=== PATIENT | female | born 2005 | race Caucasian/White ===

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

== ENCOUNTER 2023-01-28 16:51 | Emergency (ER) | payer OTHER, SELFPAY ==
[2023-01-28 16:53] VITALS: BP 137/80; PULSE 110; RESP 20; TEMP 36.7; O2SAT 100
[2023-01-28] MEDS: ACETAMINOPHEN 500 MG TABLET 1000 MG PO (17:21)
--- NOTE | 2023-01-28 17:24 | ED.URI ---
HPI - URI/Sore Throat General Chief Complaint: Upper Respiratory Infection Stated Complaint: sore throat/ fevers Time Seen by Provider: 01/28/23 16:59 Source: patient Mode of arrival: ambulatory Limitations: no limitations History of Present Illness HPI Narrative: Patient is a 17 y/o female who presents to the ED with her S.O. with report of URI sx's. Patient reports symptoms began last night. She complains of sore throat, cough, rhinorrhea, congestion, heavy breathing, subjective fevers. She has not tried anything for symptoms. Significant other has similar symptoms. Patient is and currently approximately 20 weeks gestation[address] OBGYN is Dr. Garcia. She is feeling baby move as normal. Denies any abdominal pain, vaginal bleeding, nausea, vomiting. Related Data Home Medications Medication Instructions Recorded Confirmed docosahexaenoic acid 200 mg mg PO 01/22/23 01/22/23 capsule ( DHA) doxylamine succinate 25 mg tablet 25 mg PO QHS PRN 01/22/23 01/22/23 (Unisom (doxylamine)) pyridoxine (vitamin B6) 25 mg 25 mg PO DAILY 01/22/23 01/22/23 tablet Allergies Allergy/AdvReac Type Severity Reaction Status Date / Time No Known Allergies Allergy Verified 01/28/23 16:56 Review of Systems Review of Systems: CONSTITUTIONAL: See HPI. ENT: See HPI. CARDIOVASCULAR: Denies chest pain. RESPIRATORY: See HPI. GASTROINTESTINAL: Denies abdominal pain, nausea, vomiting. GENITOURINARY: Denies vaginal bleeding, dysuria or hematuria. All systems reviewed & are unremarkable except as noted in HPI and below PMFSH Past Medical History Medical History ADHD Amenorrhea Anxiety Screening examination for sexually transmitted disease Suppression of menses Family History Family History Grandparent Diabetes mellitus Neoplasm of skin Social History Social History Smoking status: Never smoker Alcohol intake: never Substance use: never Lack of Transportation: No Lack of Food: Never True Current Housing: I Have Housing Concerned About Future Housing: No Difficulty Paying Gas/Electric Bills: No Difficulty Paying for Meds: No Currently Unemployed: No Education: High School Diploma/GED Difficulty w/ Childcare or Family Care: No Living arrangements: with family Occupation/Education: occupation Additional occupation/education comments: [employer] Gender identity (if verbalized by the patient): Female Sexual Orientation (if Verbalized by the Patient): Straight or Heterosexual Exam Narrative: GENERAL: Well appearing, thin, non-toxic, in no acute distress. HEAD: Normocephalic, atraumatic. ENT: Mild posterior pharynx erythema. No tonsillar hypertrophy or exudate. Uvula midline. No stridor. NECK: Supple. No adenopathy, no masses. RESPIRATORY: Airway patent, respirations nonlabored. Clear to auscultation bilaterally, no rales, rhonchi, wheezing. No focal lung sounds. CARDIOVASCULAR: Regular rate and rhythm without murmurs, rubs, or gallops. Radial pulses 2+ and equal bilaterally. ABDOMINAL: Soft, nontender, nondistended, no hepatosplenomegaly. Normoactive BS. MUSCULOSKELETAL: Moves all extremities. No gross deformities. SKIN: Warm, dry, normal color. No rashes. NEURO: A&O X3. Speech clear. Cranial nerves II-XII grossly intact. Steady gait. No ataxic movements. PSYCHIATRIC: Flat affect. Normal interaction. Course Vital Signs Vital signs: Vital Signs Temperature 98.1 F 01/28/23 16:53 Pulse Rate 110 H 01/28/23 16:53 Respiratory Rate 20 01/28/23 16:53 Blood Pressure 137/80 01/28/23 16:53 Pulse Oximetry 100 01/28/23 16:53 Oxygen Delivery Room Air 01/28/23 16:53 Temperature 98.1 F 01/28/23 16:53 Pulse Rate 110 H 01/28/23 16:53 Respiratory Rate 20 01/28/23 16:53
[2023-01-28 17:57] LABS: Strep Group A RT-PCR NOT DETECTED (Negative)
[2023-01-28 18:03] LABS: Influenza A QL RT-PCR Negative (Negative); Influenza B QL RT-PCR Negative (Negative); SARS-CoV-2 RNA PCR Negative (Negative)
== END 2023-01-28 18:38 | disposition home or self-care (01) ==
PROVIDERS: Emergency Provider Physician Assistant
DX: O99.512 Diseases of the respiratory system complicating pregnancy, second trimester (principal); J06.9 Acute upper respiratory infection, unspecified; Z20.822 Contact with and (suspected) exposure to COVID-19; Z3A.20 20 weeks gestation of pregnancy
CPT/HCPCS: 87636; 87651; 99283; A9270

== ENCOUNTER 2023-03-01 08:21 | Emergency (ER) | payer OTHER, SELFPAY ==
[2023-03-01 08:39] VITALS: BP 115/73; PULSE 109; RESP 16; TEMP 36.3; O2SAT 100
--- NOTE | 2023-03-01 09:12 | ED.EPISTAXIS ---
HPI - Epistaxis General Chief complaint: Epistaxis Stated complaint: bloody nose Time Seen by Provider: 03/01/23 08:53 History of Present Illness HPI Narrative: 17-year-old female that has currently presenting to the emergency department for evaluation epistaxis. Patient states this morning she had an episode of nose bleeding that did resolve after the nasal clamp. Patient is not on any blood thinners. Patient states she does suspect that her house was very dry last night. Patient denies vaginal bleeding, vaginal discharge or uterine cramping. Related Data Allergies Allergy/AdvReac Type Severity Reaction Status Date / Time No Known Allergies Allergy Verified 02/19/23 15:26 Review of Systems Review of Systems: All systems reviewed & are unremarkable except as noted in HPI and below PMFSH Past Medical History Medical History ADHD Amenorrhea Anxiety Screening examination for sexually transmitted disease Suppression of menses Family History Family History Grandparent Diabetes mellitus Neoplasm of skin Social History Social History Smoking status: Never smoker Alcohol intake: never Substance use: never Lack of Transportation: No Lack of Food: Never True Current Housing: I Have Housing Concerned About Future Housing: No Difficulty Paying Gas/Electric Bills: No Difficulty Paying for Meds: No Currently Unemployed: No Education: High School Diploma/GED Difficulty w/ Childcare or Family Care: No Living arrangements: with family Occupation/Education: occupation Additional occupation/education comments: [employer] Gender identity (if verbalized by the patient): Female Sexual Orientation (if Verbalized by the Patient): Straight or Heterosexual Exam Narrative: APPEARANCE: Well appearing, no pain, no distress, well-nourished. HEAD: normocephalic, atraumatic. EYES: PERRLA/EOMI, conjunctivae clear. NOSE: Normal no drainage EARS:TMS clear with good light reflex. THROAT: Pharynx clear, no exudate. NECK: Supple. No adenopathy, no masses. RESPIRATORY: Airway patent, respirations nonlabored. Clear to auscultation bilaterally, no rales, rhonchi, wheezing. CARDIOVASCULAR: Regular rate and rhythm without murmurs rubs or gallops. ABDOMINAL: Soft, nontender, nondistended, normal bowel sounds MUSCULOSKELETAL: Moves all extremities. Strength/ROM intact, No edema, No calf tenderness. NEURO: Alert. Cranial nerves II through XII intact. Good gait. Good coordination SKIN: Warm, dry. Normal Color Course Course Emergency Course: 17-year-old female presenting to the ED for evaluation of epistaxis. Bleeding was resolved at home using a nasal clamp. Upon arrival to the emergency department patient has no active bleeding. Patient has a stable hemoglobin and having normal PT and PTT. Patient was updated results of workup patient was encouraged of close follow-up with primary care physician. Patient was also educated ways to prevent nosebleeds at home. All questions concerns were addressed patient was well-appearing at time discharge. Vital Signs Vital signs: Vital Signs Temperature 97.4 F L 03/01/23 08:39 Pulse Rate 109 H 03/01/23 08:39 Respiratory Rate 16 03/01/23 08:39 Blood Pressure 115/73 03/01/23 08:39 Pulse Oximetry 100 03/01/23 08:39 Oxygen Delivery Room Air 03/01/23 08:39 Temperature 97.4 F L 03/01/23 08:39 Pulse Rate 109 H 03/01/23 08:39 Respiratory Rate 16 03/01/23 08:39 Blood Pressure 115/73 03/01/23 08:39 Pulse Oximetry 100 03/01/23 08:39 Oxygen Delivery Room Air 03/01/23 08:39 MDM - Epistaxis Lab Data 03/01/23 09:06 03/01/23 09:06 Labs: Lab Results 03/01/23 Range/Units 09:06 WBC 17.9 H (4.5-10.0) K/mm3 RBC 3.79 L
[2023-03-01 09:17] LABS: Basophils Absolute Auto 0.1 K/mm3 (0.0-0.1); Basophils Percent Auto 0.4 % (0.2-1.2); Eosinophils Absolute Auto 0.2 K/mm3 (0-0.3); Eosinophils Percent Auto 1.3 % (0-4.4); Hematocrit 32.5 % (37.0-47.0); Hemoglobin 9.9 g/dL (12.0-15.0); Immature Granulocyte Absolute 0.23 K/mm3 (0.00-0.031); Immature Granulocyte Percent A 1.3 % (0-0.5); Lymphocytes Percent Auto 22.9 % (18.3-44.2); Mean Corpuscular HGB Conc 30.5 g/dl (32-36); Mean Corpuscular Hemoglobin 26.1 pg (26-34); Mean Corpuscular Volume 85.8 fl (80-100); Mean Platelet Volume 9.2 fl (7.4-10.4); Monocytes Absolute Auto 1.7 K/mm3 (0.1-0.6); Monocytes Percent Auto 9.6 % (2.6-8.5); Neutrophils Absolute Auto 11.6 K/mm3 (1.3-6.7); Neutrophils Percent Auto 64.5 % (45.5-73.1); Platelet Count Result 369 k/mm3 (150-375); Red Blood Count 3.79 M/mm3 (4.2-5.4); Red Cell Distribution Width 14.1 % (11.5-14.5); White Blood Count 17.9 K/mm3 (4.5-10.0)
[2023-03-01 09:27] LABS: Alanine Aminotransferase 11 U/L (6-35); Albumin Level 3.7 g/dL (3.7-5.6); Alkaline Phosphatase 78 U/L (45-116); Anion Gap 6 mmol/L (8-16); Aspartate Amino Transferase 18 U/L (14-36); Bilirubin,Total 0.2 mg/dL (0.2-1.3); Blood Urea Nitrogen 8 mg/dL (8-21); Carbon Dioxide 24 mmol/L (22-30); Chloride 106 mmol/L (98-107); Estimated CRCL calculation 152 ml/min; Estimated Glomerular Filt Rate > 60; Glucose 81 mg/dL (65-110); Potassium 3.6 mmol/L (3.4-5.0); Sodium 136 mmol/L (134-143)
[2023-03-01 09:28] LABS: INR 0.9
== END 2023-03-01 09:55 | disposition home or self-care (01) ==
PROVIDERS: Emergency Provider Emergency Medicine
DX: O99.891 Other specified diseases and conditions complicating pregnancy (principal); R04.0 Epistaxis; Z3A.00 Weeks of gestation of pregnancy not specified
CPT/HCPCS: 36415; 80053; 85025; 85610; 85730; 99283

== ENCOUNTER 2023-04-15 01:51 | Observation (INO) | payer OTHER, SELFPAY ==
[2023-04-15 02:30] VITALS: BP 107/71; PULSE 100
[2023-04-15 02:41] VITALS: BMI 25.9
[2023-04-15 02:41] LABS: Appearance Urine Clear (Clear); Bilirubin Urine Negative (Negative); Blood Urine Negative (Negative); Color Urine Yellow (Yellow); Glucose Urine UA Negative (Negative); Ketones Urine Negative (Negative); Leukocyte Esterase Ur Negative LEU/UL (Negative); Nitrate Urine Negative (Negative); Protein Urine Negative (Negative); Specific Grav Ur 1.022 (1.001-1.035); Urobilinogen Urine 0.2 mg/dL (<2.0); pH Urine 5.5 (5.0-9.0)
--- NOTE | 2023-04-15 02:42 | ADMGEN ---
This patient, Della Davis, was admitted to OB Post 116-00. Patient/family oriented to hospital policies and general routines including ID bracelet, bed and alarms, visiting hours, pain management, procedures, bathroom and other care routines, personal items, smoking policy, room service/diet, and visiting hours. Information on how to activate the Rapid Response Team has been discussed. Patient/Family are encouraged to report perceived risks to care and to ask questions if they do not understand what they are told or what they should do.
[2023-04-15 02:45] VITALS: BP 115/74; PULSE 100
[2023-04-15 03:00] VITALS: BP 117/70; PULSE 98
[2023-04-15 03:15] VITALS: BP 120/68; PULSE 106
[2023-04-15 03:17] LABS: Add Urine Microscopic? NO
[2023-04-15 03:30] VITALS: BP 118/67; PULSE 97
[2023-04-15 03:45] VITALS: BP 117/77; PULSE 102
--- NOTE | 2023-04-15 09:06 | P.PNOB_ITS ---
OB - Triage/Final Diagnosis Visit Information Comments/Additional reasons for admission: I have assessed the risk for this patient, Della Davis, and determined that she would benefit from observation care. Evaluation Laboratory results: Laboratory Tests 04/15/23 02:16 Urine Color Yellow Urine Appearance Clear Urine pH 5.5 Ur Specific [place] 1.022 Urine Protein Negative Urine Glucose (UA) Negative Urine Ketones Negative Ur Blood (Man) Negative Urine Nitrate Negative Urine Bilirubin Negative Urine Urobilinogen 0.2 Leukocyte Esterase Rfl Negative Vital signs: Vital Signs - 24 hr 04/15/23 02:30 04/15/23 02:45 04/15/23 03:00 Pulse Rate 100 100 98 Blood Pressure 107/71 115/74 117/70 04/15/23 03:15 04/15/23 03:30 04/15/23 03:45 Pulse Rate 106 H 97 102 H Blood Pressure 120/68 118/67 117/77 Final Diagnosis (1) Abdominal pain affecting : Code(s): O26.899 - Other specified related conditions, unspecified trimester; R10.9 - Unspecified abdominal pain Status: Acute
== END 2023-04-15 03:57 | disposition home or self-care (01) ==
PROVIDERS: Admitting Provider Obstetrics & Gynecology; Visit Provider Obstetrics & Gynecology
DX: O26.893 Other specified pregnancy related conditions, third trimester (principal); R10.9 Unspecified abdominal pain; Z3A.30 30 weeks gestation of pregnancy
CPT/HCPCS: 81003; G0378; G0379

== ENCOUNTER 2023-04-17 08:12 | Outpatient (CLI) | payer OTHER, SELFPAY ==
[2023-04-17 09:34] LABS: Hematocrit 32.5 % (37.0-47.0); Hemoglobin 9.6 g/dL (12.0-15.0); Mean Corpuscular HGB Conc 29.5 g/dl (32-36); Mean Corpuscular Hemoglobin 23.2 pg (26-34); Mean Corpuscular Volume 78.7 fl (80-100); Mean Platelet Volume 9.5 fl (7.4-10.4); Platelet Count Result 417 k/mm3 (150-375); Red Blood Count 4.13 M/mm3 (4.2-5.4); Red Cell Distribution Width 15.4 % (11.5-14.5); White Blood Count 19.4 K/mm3 (4.5-10.0)
[2023-04-17 09:48] LABS: Glucose 1 Hour PP 50gm Dose 85 mg/dL
[2023-04-17 10:28] LABS: HIV 1/2 Ab P24 Ag Result Negative (Negative)
== END 2023-04-17 08:13 | disposition home or self-care (01) ==
LOC: ANHLAB 08:14
PROVIDERS: Visit Provider Student in an Organized Health Care Education/Training Program
DX: Z34.90 Encounter for supervision of normal pregnancy, unspecified, unspecified trimester (principal); Z3A.00 Weeks of gestation of pregnancy not specified
CPT/HCPCS: 36415; 82947; 85027; 86703; G0432

== ENCOUNTER 2023-05-29 10:12 | Inpatient (IN) | payer OTHER, SELFPAY ==
[2023-05-29] VITALS (137 sets, daily range): BP systolic 77–136; BP diastolic 18–114; PULSE 65–150; RESP 17; TEMP 36.4–37.3; O2SAT 78–100; BMI 29.2
[2023-05-29 10:58] LABS: Basophils Absolute Auto 0.1 K/mm3 (0.0-0.1); Basophils Percent Auto 0.4 % (0.2-1.2); Eosinophils Absolute Auto 0.3 K/mm3 (0-0.3); Eosinophils Percent Auto 1.2 % (0-4.4); Hematocrit 32.5 % (37.0-47.0); Hemoglobin 9.5 g/dL (12.0-15.0); Immature Granulocyte Absolute 0.42 K/mm3 (0.00-0.031); Immature Granulocyte Percent A 1.8 % (0-0.5); Lymphocytes Absolute Auto 3.58 K/mm3 (0.9-3.2); Lymphocytes Percent Auto 15.1 % (18.3-44.2); Mean Corpuscular HGB Conc 29.2 g/dl (32-36); Mean Corpuscular Hemoglobin 21.8 pg (26-34); Mean Corpuscular Volume 74.7 fl (80-100); Mean Platelet Volume 9.9 fl (7.4-10.4); Monocytes Absolute Auto 2.3 K/mm3 (0.1-0.6); Monocytes Percent Auto 9.5 % (2.6-8.5); Neutrophils Absolute Auto 17.1 K/mm3 (1.3-6.7); Platelet Count Result 405 k/mm3 (150-375); Red Blood Count 4.35 M/mm3 (4.2-5.4); Red Cell Distribution Width 18.3 % (11.5-14.5); White Blood Count 23.7 K/mm3 (4.5-10.0)
[2023-05-29] MEDS: LACTATED RINGERS 1,000 ML 125 ML IV CONT ×3 (11:10→18:31)
[2023-05-29] MEDS: AMPICILLIN 2 GM/NS 100 ML 2 GM/100 ML BAG IVPB (11:10)
[2023-05-29 11:14] LABS: Anisocytosis 1+ (NORMAL); Hypochromasia 1+ (NORMAL); Schistocytes None Seen (NORMAL)
--- NOTE | 2023-05-29 11:15 | LDADM ---
This patient, Della Davis, was admitted to Labor/Delivery/Recovery 106 on 05/29/23 at 10:12. Plans for labor, pain management and were discussed with patient. Patient/family oriented to hospital policies and general routines including ID bracelet, bed and alarms, visiting hours, pain management, procedures, bathroom and other care routines, personal items, smoking policy, room service/diet and guest tray routines, infant security routines, and visiting hours. Patient/Family are encouraged to report perceived risks to care and to ask questions if they do not understand what they are told or what they should do. See OBIX for further documentation.
--- NOTE | 2023-05-29 12:48 | WPDHPUPDATE1 ---
History and Physical Update Update Date/Time: 05/29/23 12:48 17 yo G1 at 36w4d who presents with PPROM. Pt states she has been leaking fluid/discharge for the past 2-5 days. She denies any regular contractions. She denies any fevers, chills, nausea, vomiting. She reports good movement. Her is complicated by anemia on iron and THC use. History and Physical has been reviewed, including an updated exam of the patient. There are NO changes in the patient's condition. Risks, benefits, and alternatives have been discussed and questions answered. Patient agrees to proceed with procedure. A/P: admit to L&D routine admission orders RH+ GBS unknown PPROM, will start ampicillin cvx 2/90/0 Will augment as indicated continuous EFM
[2023-05-29 13:00] LABS: Barbiturate Screen Urine Negative (Negative); Benzodiazepines Screen Urine Negative (Negative)
[2023-05-29 13:06] LABS: Amphetamine Screen Urine Negative (Negative); Cannabinoid Screen Urine Positive (Negative); Cocaine Screen Urine Negative (Negative); Methadone Screen Urine Negative (Negative); Opiate Screen Urine Negative (Negative); Phencyclidine Screen Urine Negative (Negative)
--- NOTE | 2023-05-29 13:54 | WPDANESEPP ---
Anes - Eval Pre Procedure Procedure: labor epidural Date/Time: 05/29/23 13:54 Surgeon: aditi Preop Diagnosis: Pain during labor Pre Op Diagnosis: Leaking Patient Data Age: 17 Gender: F Height: 1.68 m Weight: 82 kg Last Vital Signs Temp 36.9 C 05/29/23 11:00 Pulse 119 H 05/29/23 12:01 BP 113/90 05/29/23 12:01 O2 Del Method Room Air 05/29/23 11:12 Allergies Allergy/AdvReac Type Severity Reaction Status Date / Time No Known Allergies Allergy Verified 05/29/23 09:34 Home Medications Medication Instructions Recorded Confirmed Type albuterol sulfate 90 mcg/actuation 1 puff inhalation Q4H PRN 04/15/23 05/29/23 Rx aerosol inhaler shortness of breath or wheezing #6.7 grams ferrous sulfate 325 mg (65 mg 325 mg PO DAILY #30 tabs 04/19/23 05/29/23 Rx iron) tablet (Feosol) vitamin B6-vitamin E-magnesium 1 tablet PO DAILY 05/29/23 05/29/23 History tablet Laboratory Tests 05/29/23 05/29/23 10:49 12:12 WBC 23.7 H K/mm3 (4.5-10.0) RBC 4.35 M/mm3 (4.2-5.4) Hgb 9.5 L g/dL (12.0-15.0) Hct 32.5 L % (37.0-47.0) MCV 74.7 L fl (80-100) MCH 21.8 L pg (26-34) MCHC 29.2 L g/dl (32-36) RDW 18.3 H % (11.5-14.5) Plt Count 405 H k/mm3 (150-375) MPV 9.9 fl (7.4-10.4) Immature Gran % (Auto) 1.8 H % (0-0.5) Neut % (Auto) 72.0 % (45.5-73.1) Lymph % (Auto) 15.1 L % (18.3-44.2) [place] % (Auto) 9.5 H % (2.6-8.5) Eos % (Auto) 1.2 % (0-4.4) Baso % (Auto) 0.4 % (0.2-1.2) Lymph # (Auto) 3.58 H K/mm3 (0.9-3.2) [place] # (Auto) 2.3 H K/mm3 (0.1-0.6) Eos # (Auto) 0.3 K/mm3 (0-0.3) Baso # (Auto) 0.1 K/mm3 (0.0-0.1) Abs Immat Gran (auto) 0.42 H K/mm3 (0.00-0.031) Absolute Neuts (auto) 17.1 H K/mm3 (1.3-6.7) Absolute Nucleated RBC 0.000 K/mm3 (0.0-0.012) Nucleated RBC % 0.0 % (0.0-0.2) Platelet Estimate Slightly increased (Adequate) Hypochromasia 1+ (NORMAL) Anisocytosis 1+ (NORMAL) Schistocytes None seen (NORMAL) Urine Opiates Screen Negative (Negative) Urine Methadone Screen Negative (Negative) Ur Barbiturates Screen Negative (Negative) Ur Phencyclidine Scrn Negative (Negative) Ur Amphetamine Screen Negative (Negative) U Benzodiazepines Scrn Negative (Negative) Urine Cocaine Screen Negative (Negative) U Cannabinoids Screen Positive A (Negative) RPR Pending Blood Type A Positive Antibody Screen Negative Patient hx anesthesia problems: none Family hx anesthesia problems: none Results Review: All pre-operative results and documents have been reviewed as part of the pre-operative evaluation. [facility] Past Medical History Medical History ADHD Amenorrhea Anxiety Screening examination for sexually transmitted disease Suppression of menses Family History Family History Grandparent Diabetes mellitus Neoplasm of skin Social History Social History Smoking status: Former smoker Tobacco type: e-cigarettes/vaping Smoking end date: 03/19/23 Alcohol intake: never Substance use: former Do You Feel Safe in your Home?: Yes Lack of Transportation: No Lack of Food: Never True Current Housing: I Have Housing Concerned About Future Housing: No Difficulty Paying Gas/Electric Bills: No Difficulty Paying for Meds: No Currently Unemployed: YES Education: High School Diploma/GED Difficulty w/ Childcare or Family Care: No Living arrangements: with family Occupation/Education: occupation Additional occupation/education comments: [employer] Gender identity (i
[2023-05-29] MEDS: AMPICILLIN 1 GM/NS 50 ML 1 GM/50 ML BAG IVPB ×2 (15:09→19:22)
[2023-05-29] MEDS: OXYTOCIN 30 UNITS/NS 500 ML 30 UNITS/500 ML BAG 6 UNITS IV CONT (15:10)
[2023-05-29] MEDS: ONDANSETRON INJ 4 MG/2 ML VIAL IV PUSH (15:18)
--- NOTE | 2023-05-29 20:20 | WPDHPUPDATE1 ---
History and Physical Update Update Date/Time: 05/29/23 20:20 History and Physical has been reviewed, including an updated exam of the patient. There are NO changes in the patient's condition. Risks, benefits, and alternatives have been discussed and questions answered. Patient agrees to proceed with procedure.
--- NOTE | 2023-05-29 20:20 | WPDOBADMIT ---
Obstetrics - Admit Note Admission Note: record reviewed. No pertinent additions to the history and/or any subsequent changes in the physical findings that are not consistent with the expected course of the were found. Additions to the history and/or subsequent changes in the physical findings follow. None.
--- NOTE | 2023-05-29 20:20 | PM.OBPRVD ---
OB - Vaginal Delivery Note Procedure Delivery date: 05/29/23 Events: Premature Rupture of Membranes and Other ( prolonged rupture membranes /) Induction method: Per Pitocin Protocol Delivery monitor: External FHT and External Uterine Route of delivery: Episiotomy description: None Laceration Description: Perineal - 1st Degree Delivery repair: chromic Specimen: Yes Quantitative Blood Loss (ml): 350 Anesthesia type: Epidural Disposition: PACU Complications: No immediate complications Narrative: patient prepped and draped in usual manner for this procedure. Maternal expulsive efforts readily delivered vertex over intact perineum. Nuchal cord was noted and reduced. Rest of baby was delivered difficulty cord clamped baby was passed on maternal abdomen. Placenta delivered without issue in total, no significant bleeding was encountered. Uterus was well contracted. first-degree laceration was noted and approximated using 2-0 chromic in a running interlocking manner with good repair. At this point the procedure was considered terminated with immediate postoperative condition of mother and baby both good. [place] Baby Weeks of gestation at delivery: 36 Infant gender: Male presentation: vertex position: Right Occiput Anterior Placenta delivery description: Spontaneous Cord Vessel Description: 3 Vessels, Nuchal Cord and Reduced AMG Delivery Billing Delivery Delivery: Delivery Charge
[2023-05-29] MEDS: OXYTOCIN 30 UNITS/NS 500 ML 30 UNITS/500 ML BAG 125 UNITS IV CONT (20:34)
[2023-05-29] MEDS: LORATADINE 10 MG TABLET (21:30)
[2023-05-29] MEDS: BENZOCAINE 20% AER SPR (*SP) 56 GM CAN 1 SPRAY TOPICAL (23:23)
[2023-05-29] MEDS: WITCH HAZEL 40 PADS 1 PAD TOPICAL (23:23)
--- NOTE | 2023-05-29 23:50 | PC.NURSE ---
Patient transferred to post room #290 via (W/C ). Support person present. Oriented to unit, room, information board, rooming in, admission packet and security measures. Patient verbalizes understanding.
[2023-05-30 00:12] VITALS: BP 114/76; PULSE 95; RESP 17; RESP 18; TEMP 36.4; O2SAT 99
[2023-05-30] MEDS: IBUPROFEN 600 MG TABLET PO ×3 (01:29→17:58)
[2023-05-30] MEDS: HYDROcodone/acetaminophen (*CRX) 5-325 MG TABLET 1 TAB PO ×4 (01:30→17:58)
[2023-05-30 03:50] VITALS: BP 121/69; PULSE 102; RESP 18; TEMP 36.4; O2SAT 97
[2023-05-30 04:51] LABS: Basophils Absolute Auto 0.1 K/mm3 (0.0-0.1); Basophils Percent Auto 0.4 % (0.2-1.2); Eosinophils Absolute Auto 0.2 K/mm3 (0-0.3); Eosinophils Percent Auto 0.7 % (0-4.4); Hematocrit 30.1 % (37.0-47.0); Hemoglobin 8.7 g/dL (12.0-15.0); Immature Granulocyte Absolute 0.42 K/mm3 (0.00-0.031); Immature Granulocyte Percent A 1.4 % (0-0.5); Lymphocytes Absolute Auto 4.42 K/mm3 (0.9-3.2); Lymphocytes Percent Auto 14.9 % (18.3-44.2); Mean Corpuscular HGB Conc 28.9 g/dl (32-36); Mean Corpuscular Hemoglobin 21.6 pg (26-34); Mean Corpuscular Volume 74.9 fl (80-100); Mean Platelet Volume 9.9 fl (7.4-10.4); Monocytes Absolute Auto 2.9 K/mm3 (0.1-0.6); Monocytes Percent Auto 9.7 % (2.6-8.5); Neutrophils Absolute Auto 21.7 K/mm3 (1.3-6.7); Neutrophils Percent Auto 72.9 % (45.5-73.1); Platelet Count Result 375 k/mm3 (150-375); Red Blood Count 4.02 M/mm3 (4.2-5.4); Red Cell Distribution Width 18.4 % (11.5-14.5); White Blood Count 29.7 K/mm3 (4.5-10.0)
[2023-05-30 05:30] LABS: Anisocytosis 1+; Hypochromasia 1+; Microcytosis 1+ (NORMAL); Platelet Estimate Adequate (Adequate)
[2023-05-30 05:31] LABS: Schistocytes None Seen; Target Cells 1+
[2023-05-30] MEDS: WITCH HAZEL 40 PADS 1 PAD TOPICAL (07:25)
[2023-05-30] MEDS: BENZOCAINE 20% AER SPR (*SP) 56 GM CAN 1 SPRAY TOPICAL (07:25)
[2023-05-30] MEDS: POLYSACCHARIDE IRON COMPLEX 150 MG CAPSULE PO ×2 (07:25→17:58)
[2023-05-30] MEDS: DOCUSATE SODIUM 100 MG CAPSULE PO ×2 (07:25→17:58)
[2023-05-30] MEDS: MULTIVIT/MIN/PREN/FOL AC/IRON TABLET 1 TAB PO (07:25)
[2023-05-30 08:10] VITALS: BP 109/65; PULSE 79; RESP 18; TEMP 36.5; O2SAT 99
--- NOTE | 2023-05-30 08:29 | P.PNOB_ITS ---
OB - PN: Subj Subjective Date/time seen: 05/30/23 08:29 Patient comments: no complaints, pain well controlled and tolerating diet [place] feeding status: exclusively breast feeding Narrative: patient doing well this AM. No complaints. Pain is well controlled. She reports minimal bleeding. She is ambulating and voiding without difficulty. She is tolerating PO. She denies N/V, fever, chills. OB - PN: Obj Data Labs 05/30/23 04:29 Labs: Laboratory Results - last 24 hr 05/29/23 05/29/23 05/30/23 10:49 12:12 04:29 WBC 23.7 H 29.7 H RBC 4.35 4.02 L Hgb 9.5 L 8.7 L Hct 32.5 L 30.1 L MCV 74.7 L 74.9 L MCH 21.8 L 21.6 L MCHC 29.2 L 28.9 L RDW 18.3 H 18.4 H Plt Count 405 H 375 MPV 9.9 9.9 Immature Gran % (Auto) 1.8 H 1.4 H Neut % (Auto) 72.0 72.9 Lymph % (Auto) 15.1 L 14.9 L [place] % (Auto) 9.5 H 9.7 H Eos % (Auto) 1.2 0.7 Baso % (Auto) 0.4 0.4 Lymph # (Auto) 3.58 H 4.42 H [place] # (Auto) 2.3 H 2.9 H Eos # (Auto) 0.3 0.2 Baso # (Auto) 0.1 0.1 Abs Immat Gran (auto) 0.42 H 0.42 H Absolute Neuts (auto) 17.1 H 21.7 H Absolute Nucleated RBC 0.000 0.000 Nucleated RBC % 0.0 0.0 Platelet Estimate Slightly increased Adequate Hypochromasia 1+ 1+ Anisocytosis 1+ 1+ Microcytosis 1+ Target Cells 1+ Schistocytes None seen None seen Urine Opiates Screen Negative Urine Methadone Screen Negative Ur Barbiturates Screen Negative Ur Phencyclidine Scrn Negative Ur Amphetamine Screen Negative U Benzodiazepines Scrn Negative Urine Cocaine Screen Negative U Cannabinoids Screen Positive A Blood Type A Positive Antibody Screen Negative OB - PN A/P Plan day: 1 Plan: routine care Comments: patient doing well H/H 8.7/30, patient asymptomatic. Recommended iron supplementation Afebrile, vital signs stable continue routine care Time Spent With Patient Time: Total time spent is greater than 50% in coordination of care (as documented) at patient's floor/unit and/or counseling patient: Time with patient: less than 15 minutes Review of Systems Review of Systems: All systems reviewed & are unremarkable except as noted in HPI and below Exam Const: General: comfortable and no acute distress Resp: Effort & Inspection: normal respiratory effort Cardio: Rate: regular rate GI: GI Palp: Yes Soft to palpation and No Tenderness to palpation present (GI) Auscultation: normal bowel sounds Other: fundus firm and below umbilicus. Psych: Affect: normal affect
--- NOTE | 2023-05-30 08:57 | WPDANLDPN2 ---
Anes-Prog Note L&D Date/Time: 05/30/23 08:57 Comfortable throughout: labor and delivery Neuraxial method: epidural Epidural/Spinal procedure site: clean & non-tender Neuro status: Neuro function grossly intact. Cardiovascular status: normal Respiratory status: normal Airway patency: baseline Mental status: baseline Post-Op hydration status: normal Vital Signs: Last Vital Signs Temp 36.4 C L 05/30/23 03:50 Pulse 102 H 05/30/23 03:50 Resp 18 05/30/23 03:50 BP 121/69 05/30/23 03:50 Pulse Ox 97 05/30/23 03:50 O2 Del Method Room Air 05/30/23 00:12 Pain score (VAS): 0/10 I/O: Intake & Output 05/29/23 05/30/23 05/30/23 23:59 07:59 15:59 Intake Total 658.3 Balance 658.3 Post-procedural complaints: pruritis moderate, treatment effective Patient feedback: Patient satisfied with anesthetic care.
--- NOTE | 2023-05-30 10:47 | PCCCNOTE ---
Care Coordination. Patient referred to CC for teen and positive marijuana UDS on admission. Baby not tested. Met with pt., FOB, and pt.'s mother at bedside. Pt. plans to return home with her mother. She reports having very good support and all necessary baby care items. She plans to reach out to [facility] and I provided her resources with their information as well. Pt. and her mother report she used marijuana 3-4 times during and denies this being a concern or need for substance use resources. Spoke with Jose at [facility] hotline and he took pt.'s situation as information only Intake ID#[id number]. Pt. denies further CC needs.
[2023-05-30 11:41] LABS: Rapid Plasma Reagin Non-Reactive (NonReactive)
[2023-05-30 13:09] VITALS: BP 104/48; PULSE 90; RESP 16; TEMP 36.5; O2SAT 99
[2023-05-30 20:00] VITALS: BP 116/75; PULSE 84; RESP 12; TEMP 36.6; O2SAT 98
[2023-05-31] MEDS: IBUPROFEN 600 MG TABLET PO ×3 (01:30→14:37)
[2023-05-31] MEDS: HYDROcodone/acetaminophen (*CRX) 5-325 MG TABLET 1 TAB PO (01:32)
[2023-05-31 05:55] LABS: Basophils Absolute Auto 0.1 K/mm3 (0.0-0.1); Basophils Percent Auto 0.6 % (0.2-1.2); Eosinophils Absolute Auto 0.3 K/mm3 (0-0.3); Eosinophils Percent Auto 1.8 % (0-4.4); Hematocrit 29.9 % (37.0-47.0); Hemoglobin 8.6 g/dL (12.0-15.0); Immature Granulocyte Absolute 0.51 K/mm3 (0.00-0.031); Immature Granulocyte Percent A 2.8 % (0-0.5); Lymphocytes Absolute Auto 4.82 K/mm3 (0.9-3.2); Lymphocytes Percent Auto 26.6 % (18.3-44.2); Mean Corpuscular HGB Conc 28.8 g/dl (32-36); Mean Corpuscular Hemoglobin 22.3 pg (26-34); Mean Corpuscular Volume 77.7 fl (80-100); Monocytes Absolute Auto 1.7 K/mm3 (0.1-0.6); Monocytes Percent Auto 9.4 % (2.6-8.5); Neutrophils Absolute Auto 10.7 K/mm3 (1.3-6.7); Neutrophils Percent Auto 58.8 % (45.5-73.1); Platelet Count Result 350 k/mm3 (150-375); Red Blood Count 3.85 M/mm3 (4.2-5.4); Red Cell Distribution Width 18.8 % (11.5-14.5); White Blood Count 18.2 K/mm3 (4.5-10.0)
[2023-05-31 06:58] LABS: Platelet Estimate Adequate (Adequate)
[2023-05-31 07:07] LABS: Polychromasia 1+; Smudge Cells PRESENT
[2023-05-31 07:08] LABS: Anisocytosis 2+; Macrocytosis 1+ (NORMAL); Microcytosis 1+ (NORMAL)
[2023-05-31 07:09] LABS: Atypical Lymphocytes Present; Schistocytes None Seen
[2023-05-31 07:40] VITALS: BP 96/50; PULSE 63; RESP 16; TEMP 36.5; O2SAT 97
--- NOTE | 2023-05-31 07:55 | PM.OBDSVD ---
DS: Admitting Diagnosis Discharge Date 05/31/23 Admitting Diagnosis pre term premature rupture of membranes Anemia DS: Discharge Diagnosis Discharge Diagnosis (1) Normal vaginal delivery: Code(s): O80 - Encounter for full-term uncomplicated delivery Status: Acute (2) Anemia affecting : Code(s): O99.019 - Anemia complicating , unspecified trimester Status: Acute OB - DS: Summary OB Procedures : None OB Procedures Intrapartum: Spontaneous Vag Delivery OB Procedures: : None Peripartum Data Laceration Description: Perineal - 1st Degree Episiotomy description: None Time Spent with Patient Time attestation: Total time spent providing and/or coordinating discharge services: Exam Const: General: comfortable and no acute distress Resp: Effort & Inspection: normal respiratory effort Auscultation: clear to auscultation bilaterally Cardio: Rate: regular rate GI: GI Palp: Yes Soft to palpation Auscultation: normal bowel sounds Other: Fundus firm below umbilicus Psych: Appearance: grossly normal Mental Status: mental status grossly normal Affect: normal affect DS: Data Data Completed and Pending Pending studies at discharge: Pending at discharge 05/29/23 20:10 Surgical [PTH] Routine Labs on day of discharge: Labs from last 24 hours 05/31/23 05/29/23 05:42 10:49 WBC 18.2 H RBC 3.85 L Hgb 8.6 L Hct 29.9 L MCV 77.7 L MCH 22.3 L MCHC 28.8 L RDW 18.8 H Plt Count 350 MPV 10.0 Immature Gran % (Auto) 2.8 H Neut % (Auto) 58.8 Lymph % (Auto) 26.6 [place] % (Auto) 9.4 H Eos % (Auto) 1.8 Baso % (Auto) 0.6 Lymph # (Auto) 4.82 H [place] # (Auto) 1.7 H Eos # (Auto) 0.3 Baso # (Auto) 0.1 Abs Immat Gran (auto) 0.51 H Absolute Neuts (auto) 10.7 H Absolute Nucleated RBC 0.000 Nucleated RBC % 0.0 Atypical Lymphocytes Present Smudge Cells Present Platelet Estimate Adequate Polychromasia 1+ Anisocytosis 2+ Microcytosis 1+ Macrocytosis 1+ Schistocytes None seen RPR Non-reactive Discharge Plan Discharge Discharging Clinician: John Real Patient Disposition: Home, Self-Care Activity: as tolerated and pelvic rest Diet: regular Patient Instructions: Antibiotic Form, How to Stop Smoking (GEN), Vaginal Delivery (DC) Stand Alone Forms: General Discharge Information Follow-up/Referrals: John Real MD [Physician] - Discharge Medications: New acetaminophen 500 mg tablet 500 mg PO Q6H PRN (Reason: pain) Qty: 30 0RF ibuprofen 600 mg tablet 600 mg PO Q6H PRN (Reason: pain) Qty: 30 0RF Continued ferrous sulfate [Feosol] 325 mg (65 mg iron) tablet 325 mg PO DAILY Qty: 30 1RF vitamin B6-vitamin E-magnesium Tablet 1 tablet PO DAILY albuterol sulfate 90 mcg/actuation HFA aerosol inhaler 1 puff inhalation Q4H PRN (Reason: shortness of breath or wheezing) Qty: 6.7 0RF Date of admission: 05/29/23 10:12 Primary Care Provider: UNKNOWN,DOCTOR Admitting Provider: John Real Attending physician on admission: John Real Condition: Stable
[2023-05-31] MEDS: DOCUSATE SODIUM 100 MG CAPSULE PO ×2 (08:50→16:22)
[2023-05-31] MEDS: MULTIVIT/MIN/PREN/FOL AC/IRON TABLET 1 TAB PO (08:50)
[2023-05-31] MEDS: POLYSACCHARIDE IRON COMPLEX 150 MG CAPSULE PO ×2 (08:51→16:22)
[2023-06-01 10:35] VITALS: BP 113/70; PULSE 97; RESP 18; TEMP 36.6; O2SAT 99
== END 2023-05-31 17:35 | disposition home or self-care (01) | DRG 560 ==
LOC: ANHLDR 14:16 → ANHOB2 05-30 00:44
PROVIDERS: Obstetrics & Gynecology; Admitting Provider Student in an Organized Health Care Education/Training Program; Visit Provider Student in an Organized Health Care Education/Training Program
DX: O42.913 Preterm premature rupture of membranes, unspecified as to length of time between rupture and onset of labor, third trimester (principal); O99.02 Anemia complicating childbirth; D64.9 Anemia, unspecified; O99.324 Drug use complicating childbirth; F12.90 Cannabis use, unspecified, uncomplicated; O70.0 First degree perineal laceration during delivery; O69.1XX0 Labor and delivery complicated by cord around neck, with compression, not applicable or unspecified; Z23 Encounter for immunization; Z3A.36 36 weeks gestation of pregnancy; Z37.0 Single live birth
CPT/HCPCS: 36415; 80307; 85025; 86592; 86850; 86900; 86901; 88307; 90471; 90686; A9270; G0008; J0290; J2405; J2590; J2795; J7120

== ENCOUNTER 2023-08-21 15:19 | Emergency (ER) | payer OTHER, SELFPAY ==
--- NOTE | ~2023-08-21 | CT_ITS ---
EXAMINATION: CT brain wo con DATE: 08/21/2023 15:56 INDICATION: Migraine- no prior ct brain . TECHNIQUE: Computed tomography (CT) of the head was performed without intravenous contrast. The mA wa s adjusted according to patient size. Iterative reconstruction technique was employed. The dose-lengt h product was 681.00 mGy-cm. COMPARISON: None. FINDINGS: No acute intracranial hemorrhage or extra-axial fluid collection. No hydrocephalus, mass, or herniation. No acute ischemic infarct. Unremarkable dural venous sinus attenuation. No acute osseous abnormality. Right maxillary retention cyst/polyp, the remaining aerated spaces are clear. IMPRESSION: No acute intracranial process. Reviewed, dictated and finalized at location K.
[2023-08-21 15:22] VITALS: BP 123/69; PULSE 110; RESP 18; TEMP 37.1; O2SAT 100
--- NOTE | 2023-08-21 15:34 | ED.HA ---
HPI - Headache General Chief Complaint: Headache Stated Complaint: migraine, bladder issues Time Seen by Provider: 08/21/23 15:22 Source: patient Mode of arrival: ambulatory Limitations: no limitations History of Present Illness HPI Narrative: Della is a 17-year-old female patient presenting to the emergency room today with complaints of migraine headache that is been going on for 1.5 weeks. States the pain is currently a 6/10 and sharp and constant. She reports she has been taking ibuprofen and that has been helping her headaches however she has been taking an excessive amount of ibuprofen. States she has has a history of migraine headaches but has never had a CT scan completed. Is states that she is having some associated nausea, photosensitivity and phonosensitivity. She denies any visual changes. States the pain is on the left side of her head and goes down into her jaw. No history of trigeminal nerve neuralgia. No pain over the temporal. Also is concerned about possibly having a urinary tract infection. She states over the last few days she has had some urinary frequency and is concerned about a urinary tract infection as she gets these frequently. Related Data Allergies Allergy/AdvReac Type Severity Reaction Status Date / Time No Known Allergies Allergy Verified 08/21/23 15:26 Review of Systems Review of Systems: Pertinent positives per HPI. Patient denies any fever, chills, rash, visual changes, dizziness, cough, runny nose, sore throat, shortness of breath, chest pain, palpitations, vomiting, diarrhea, constipation, abdominal pain. PMFSH Past Medical History Medical History (Updated 08/21/23 @ 17:14 by Jovon Sheriff APRN) ADHD Amenorrhea Anxiety Screening examination for sexually transmitted disease Suppression of menses Family History Family History Grandparent Diabetes mellitus Neoplasm of skin Social History Social History Smoking status: Former smoker Tobacco type: e-cigarettes/vaping Smoking end date: 03/19/23 Alcohol intake: never Substance use: former Do You Feel Safe in your Home?: Yes Lack of Transportation: No Lack of Food: Never True Current Housing: I Have Housing Concerned About Future Housing: No Difficulty Paying Gas/Electric Bills: No Difficulty Paying for Meds: No Currently Unemployed: YES Education: High School Diploma/GED Difficulty w/ Childcare or Family Care: No Living arrangements: with family Occupation/Education: occupation Additional occupation/education comments: [employer] Gender identity (if verbalized by the patient): Female Sexual Orientation (if Verbalized by the Patient): Straight or Heterosexual Spiritual care concerns: No Comments At the time of my signature, I reviewed and agree with the nursing past medical, surgical, social, and family history. There is no relevant family history pertinent to the patient complaint. Exam Narrative: General: Well-developed, well nourished, in no apparent distress Head: Normocephalic, atraumatic Eyes: Pupils equally round and reactive to light bilaterally, EOM intact, sclera and conjunctive clear, no discharge, lids normal Ears: TMs intact and clear, ear canals clear, no drainage, grossly hearing normal. Nose: Nares patent, no discharge, no inflammation, no sinus tenderness. Mouth: Oropharynx without lesions or masses, good dentition, MMM. Tongue midline, even rise and fall of uvula Neck: Supple, trachea midline, no enlargement of anterior or posterior cervical nodes, no thyroid masses or goiter palpable. Cardio: Regular rate and rhythm, s1 and s2 normal, no murmur appreciated. Resp: Clear to auscultation bilaterally anteriorly and posteriorly, no rhonchi, rales, wheezing or rubs Abdomen: Soft, pliable, nondistended, nontender palpation, no organomegaly, keyanna
[2023-08-21] MEDS: PROMETHAZINE HCL 25 MG/ML AMPUL 12.5 MG IV PUSH (15:52)
[2023-08-21] MEDS: diphenhydrAMINE HCl INJ 50 MG/ML VIAL IV PUSH (15:52)
[2023-08-21] MEDS: SODIUM CHLORIDE 0.9% IV 1,000 ML 999 ML IV CONT (15:52)
[2023-08-21] MEDS: ACETAMINOPHEN 500 MG TABLET 1000 MG PO (15:53)
[2023-08-21 17:00] LABS: Appearance Urine Clear (Clear); Bacteria Urine None Seen /hpf; Bilirubin Urine Negative (Negative); Blood Urine Negative (Negative); Color Urine Yellow (Yellow); Glucose Urine UA Negative (Negative); Ketones Urine Negative (Negative); Leukocyte Esterase Ur 2+ LEU/UL (Negative); Nitrate Urine Negative (Negative); Non Pathogenic Casts 0-2; Protein Urine Negative (Negative); RBC Urine 0-2 /hpf (0-2); Specific Grav Ur 1.015 (1.001-1.035); Squamous Epithelial Cell Urine Occasional /hpf (Few); Urobilinogen Urine 0.2 mg/dL (<2.0); WBC Urine 21-50 /hpf (0-3); pH Urine 5.5 (5.0-9.0)
[2023-08-21 17:04] LABS: Add Urine Microscopic? YES
[2023-08-21 17:30] VITALS: BP 112/69; PULSE 92; RESP 18; O2SAT 100
== END 2023-08-21 17:32 | disposition home or self-care (01) ==
PROVIDERS: Emergency Provider Nurse Practitioner Family
DX: G43.909 Migraine, unspecified, not intractable, without status migrainosus (principal); N30.00 Acute cystitis without hematuria; Z87.891 Personal history of nicotine dependence
CPT/HCPCS: 70450; 81001; 81025; 87077; 87086; 87088; 87186; 96361; 96374; 96375; 99284; A9270; J1200; J2550; J7030

== ENCOUNTER 2023-09-18 13:56 | Emergency (ER) | payer OTHER, SELFPAY ==
[2023-09-18 13:58] VITALS: BP 123/68; PULSE 93; RESP 16; TEMP 36.5; O2SAT 99
--- NOTE | 2023-09-18 14:17 | ED.HA ---
HPI - Headache General Chief Complaint: Headache Stated Complaint: headache for days History of Present Illness HPI Narrative: 17-year-old female no medical problems presents to the emergency room for evaluation of headache has been present for 2 days. He associated with photophobia Had bev. Denies any injury or trauma. States she had a similar type headache 1 month ago and was seen in the emergency room for. States he has not had headaches like this prior to childbirth which was 4 months ago. states she took ibuprofen with no relief of her symptoms. Patient was not referred to Neurology for her headache previous visit. Related Data Allergies Allergy/AdvReac Type Severity Reaction Status Date / Time No Known Allergies Allergy Verified 09/18/23 14:33 Review of Systems Review of Systems: ROS unremarkable except for noted in HPI PMFSH Past Medical History Medical History ADHD Amenorrhea Anxiety Screening examination for sexually transmitted disease Suppression of menses Family History Family History Grandparent Diabetes mellitus Neoplasm of skin Social History Social History Smoking status: Former smoker Tobacco type: e-cigarettes/vaping Smoking end date: 03/19/23 Alcohol intake: never Substance use: former Do You Feel Safe in your Home?: Yes Lack of Transportation: No Lack of Food: Never True Current Housing: I Have Housing Concerned About Future Housing: No Difficulty Paying Gas/Electric Bills: No Difficulty Paying for Meds: No Currently Unemployed: YES Education: High School Diploma/GED Difficulty w/ Childcare or Family Care: No Living arrangements: with family Occupation/Education: occupation Additional occupation/education comments: [employer] Gender identity (if verbalized by the patient): Female Sexual Orientation (if Verbalized by the Patient): Straight or Heterosexual Spiritual care concerns: No Exam Narrative: GENERAL: Well-appearing, well-nourished, no physical limitations, and in no acute distress. HEAD: Normocephalic, atraumatic. EYES: Conjunctivae normal, PERRLA and EOMI. ENT: External nose normal, Nares clear, no rhinorrhea or epistaxis. Mucous membranes moist. Oropharynx without tonsillar hypertrophy exudate or other lesions. External ears normal, bilateral TMs normal bilaterally NECK: Supple. No meningeal signs. CHEST: Clear to auscultation. No respiratory distress. No wheezes rales or rhonchi. HEART: Regular rate and rhythm. No murmur heard. Normal peripheral pulses. EXTREMITIES: Normal range of motion. No edema. No clubbing or cyanosis SKIN: Warm, dry, no rash. No noted wounds NEURO: No focal deficits. Alert and oriented x3. MAEW. CN's II-XI intact bilaterally, normal gait PSYCH: Cooperative. Normal mood and affect. Course Course Emergency Course: patient was found of a vaping in the room after given headache cocktail. Will discharge patient home in stable condition with follow-up to Neurology. Vital Signs Vital signs: Vital Signs Temperature 36.5 C 09/18/23 13:58 Pulse Rate 93 09/18/23 13:58 Respiratory Rate 16 09/18/23 13:58 Blood Pressure 123/68 09/18/23 13:58 Pulse Oximetry 99 09/18/23 13:58 Oxygen Delivery Room Air 09/18/23 13:58 Temperature 36.5 C 09/18/23 13:58 Pulse Rate 93 09/18/23 13:58 Respiratory Rate 16 09/18/23 13:58 Blood Pressure 123/68 09/18/23 13:58 Pulse Oximetry 99 09/18/23 13:58 Oxygen Delivery Room Air 09/18/23 13:58 Discharge Plan Discharge Clinical Impression: Headache Patient Disposition: Home, Self-Care Condition: Stable Instructions: Antibiotic Form, Acute Headache (ED) Prescriptions: No Action ferrous sulfate [Feosol] 325 mg (65 mg iron) tablet 325 m
[2023-09-18] MEDS: SODIUM CHLORIDE 0.9% IV 1,000 ML 999 ML IV CONT (14:32)
[2023-09-18] MEDS: KETOROLAC 30 MG/ML VIAL (*BKC) IV PUSH (14:41)
[2023-09-18] MEDS: dexAMETHasone SOD PHOS INJ 10 MG/ML 1 ML VIAL IV PUSH (14:41)
[2023-09-18] MEDS: METOCLOPRAMIDE HCL INJ 10 MG/2 ML VIAL IV PUSH (14:41)
[2023-09-18] MEDS: diphenhydrAMINE HCl INJ 50 MG/ML VIAL 25 MG IV PUSH (14:42)
== END 2023-09-18 15:52 | disposition home or self-care (01) ==
LOC: ANHED 14:54
PROVIDERS: Emergency Provider Nurse Practitioner Family
DX: R51.9 Headache, unspecified (principal); F90.9 Attention-deficit hyperactivity disorder, unspecified type; F41.9 Anxiety disorder, unspecified; Z87.891 Personal history of nicotine dependence; Z79.899 Other long term (current) drug therapy
CPT/HCPCS: 96361; 96374; 96375; 99284; J1100; J1200; J1885; J2765; J7030

== ENCOUNTER 2024-05-03 18:05 | Emergency (ER) | payer OTHER, SELFPAY ==
--- OUTSIDE RECORDS SUMMARY | 2024-05-03 18:07 | XMS_ITS | Referral Summary ---
Author Organization [facility] Address [address] [place] [address] Care Team Providers Care Nurse Licensed Practical Name Role Phone Stephane Lira MD Primary Care Provider + Jayjay Nguyen MD Unavailable Source Comments [facility],non-owned Affiliates and Associated Physician Practices is amultiple site organization consisting of ambulatory clinics and hospital sitesin [place], [place], [place] and [place]. This disclosure is being madepursuant to the Care Everywhere program and may not contain all information available regarding this patient. Last updated 17.[facility] Allergies No known active allergies Medications * Be aware that medications may not be up to date on this document. Alwaysverify current medications with the patient. Medication Sig Dispensed Refills Start Date End Date Status ibuprofen (MOTRIN) 200 MG tablet Take 400 mg by mouth every 6 hours as needed for Pain Active Active Problems Problem Noted Date Diagnosed Date Dizziness Social History Tobacco Use Types Packs/Day Years Used Date Smoking Tobacco: Passive Smo ke Exposure - Never Smoker Smokeless Tobacco: Never Sex and Gender Information Value Date Recorded Sex Assigned at Not on file Gender Identity Not on file Sexual Orientation Not on file Last Filed Vital Signs Vital Sign Reading Time Taken Comments Blood Pressure - - Pulse - - Temperature - - Respiratory Rate - - Oxygen Saturation - - Inhaled Oxygen Concentration - - Weight 67.3 kg (148 lb 5.9 oz) 03/14/2019 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
--- OUTSIDE RECORDS SUMMARY | 2024-05-03 18:07 | XMS_ITS | Patient Health Summary ---
Author Organization [facility] Address [address] [place] [address] Care Team Providers Care Machine Plug Shaper Name Role Phone Stephane Lira MD Primary Care Provider + Jayjay Nguyen MD Unavailable Note from [facility],non-owned Affiliates and Associated Physician Practices is amultiple site organization consisting of ambulatory clinics and hospital sitesin [place], [place], [place] and [place]. This disclosure is being madepursuant to the Care Everywhere program and may not contain all information available regarding this patient. Last updated 17.[facility] Allergies No known active allergies Medications * Be aware that medications may not be up to date on this document. Alwaysverify current medications with the patient. * ibuprofen (MOTRIN) 200 MG tablet Take 400 mg by mouth every 6 hours as needed for Pain Active Problems Problem Noted Date Diagnosed Date [...] lb 5.9 oz) 03/14/2019 3:31 P M DIRECTOR RADIO Height 166 cm (5' 5.35 ) 03/14/2019 3:31 PM DIRECTOR RADIO Body Mass Index 24.42 03/14/2019 3:31 PM DIRECTOR RADIO Procedures * XR KNEE RIGHT 4VW OR MORE(Performed 03/14/2019) Performed for Right knee pain, unspecified chronicity * CULTURE BLOOD(Performed 12/24/2013) * CULTURE URINE(Performed 12/24/2013) Results * XR KNEE RIGHT 4VW OR MORE (03/14/2019 3:49 PM DIRECTOR RADIO) Anatomical Region Laterality Modality Lower Extremity Radiographic Rosemarie ging 03/14/2019 3:53 PM DIRECTOR RADIO Impressions 03/14/2019 3:57 PM DIRECTOR RADIO Small joint effusion. No visible osseous abnormality. Reading Radiologist: VIOLETTA ROGEL MD on 03/14/2019 at 3:57 PM Narrative 03/14/2019 3:57 PM DIRECTOR RADIO EXAMINATION: XR KNEE RIGHT 4V OR MORE Reason For Study Pain in right knee TECHNIQUE: 4 views. COMPARISON: None FINDINGS: There is a small fluid accumulation in the suprapatellar recess. There is no evidence of an intra-articular loose body. There is no visible osseous abnormality. There is no evidence of a fracture. The joints are aligned appropriately. There are no osseous stress changes. Procedure Note Violetta Rogel MD - 03/14/2019 EXAMINATION: XR KNEE RIGHT 4V OR MORE Reason For Study Pain in right knee TECHNIQUE: 4 views. COMPARISON: None FINDINGS: There is a small fluid accumulation in the suprapatellar recess. There is no evidence of an intra-articular loose body. There is no visible osseous abnormality. There is no evidence of a fracture. The joints are aligned appropriately. There are no osseous stress changes. IMPRESSION Small joint effusion. No visible osseous abnormality. Reading Radiologist: VIOLETTA ROGEL MD on 03/14/2019 at 3:57 PM Jayjay Nguyen MD DIAGNOSTIC IMAGING [facility] * CULTURE BLOOD (12/24/2013 4:13 PM CDT) Culture Blood No Growth at [address] [facility] Blood specimen (specimen) BLOOD SPECIMEN / Unknown 12/24/2013 4:13 PM CDT 12/25/2013 9:35 AM CDT Narrative [facility] - 12/30/2013 9:45 AM CDT Specimen Type->Blood Kyle Dueñas MD LAB - MICROBIOLOGY [facility] [address] [phone] * CULTURE URINE (12/24/2013 4:13 PM CDT) Culture Urine No Growth of >100 CFU/ml after 48 Hours [facility] Urine specimen (specimen) URINE / Unknown 12/24/2013 4:13 PM CDT 12/25/2013 9:35 AM CDT Narrative [facility] - 12/26/2013 1:03 PM CDT Specimen Type->Urine Kyle Dueñas MD LAB - MICROBIOLOGY [facility] Performing Organization Address City/[facility] Co de Phone Number [address] [phone] Care Teams Machine Plug Shaper Relationship Specialty Start Date End Date Stephane Lira MD PCP - General Internal Medicine 03/05/19 Jayjay Nguyen MD Orthopedic Surgery 03/14/19
--- OUTSIDE RECORDS SUMMARY | 2024-05-03 18:07 | XMS_ITS | Clinical Summary ---
Author Organization [facility] Address [address] [place] [address] Care Team Providers Care Director Of Software Development Name Role Phone Stephane Lira MD Primary Care Provider + Jayjay Nguyen MD Unavailable Source Comments [facility],non-owned Affiliates and Associated Physician Practices is amultiple site organization consisting of ambulatory clinics and hospital sitesin [place], [place], [place] and [place]. This disclosure is being madepursuant to the Care Everywhere program and may not contain all information available regarding this patient. Last updated 17.[facility] Allergies No known active allergies Medications * [...] lb 5.9 oz) 03/14/2019 3:31 P M MARKETING ASSOCIATE Height 166 cm (5' 5.35 ) 03/14/2019 3:31 PM MARKETING ASSOCIATE Body Mass Index 24.42 03/14/2019 3:31 PM MARKETING ASSOCIATE Plan of Treatment Health Maintenance Due Date Last Done Comments HIV SCREENING 11/03/2018 HPV VACCINE (1 - 3-dose series) 11/03/2018 CHLAMYDIA/GONORRHEA SCREENING 2019 MENINGOCOCCAL (Group B) VACC INE (1 of 2 - Standard) 2019 HEPATITIS C SCREENING 10/30/2021 DTAP/TDAP/TD VACCINES (1 - Tdap) 11/03/2022 HEPATITIS B VACCINE (1 of 3 - 19+ 3-dose series) 11/03/2022 COVID-19 VACCINE (1 - 2023-2 5 season) 2023 INFLUENZA VACCINE (#1) 2023 DEPRESSION SCREENING 03/19/2024 ZOSTER VACCINE (1 of 2) 11/03/2053 HIB VACCINE Aged Out No longer eligi ble based on patient's age to complete this topic MENINGOCOCCAL VACCINE Aged Out No rafael erin eligible based on patient's age to complete this topic PNEUMOCOCCAL VACCINE Aged Out No long er eligible based on patient's age to complete this topic Care Teams Director Of Software Development Relationship Specialty Start Date End Date Stephane Lira MD PCP - General Internal Medicine 03/05/19 Jayjay Nguyen MD Orthopedic Surgery 03/14/19
--- NOTE | 2024-05-03 18:10 | ED.URI ---
HPI - URI/Sore Throat General Chief Complaint: Upper Respiratory Infection Stated Complaint: headache / naussea Time Seen by Provider: 05/03/24 18:05 Source: patient Mode of arrival: ambulatory Limitations: no limitations History of Present Illness HPI Narrative: Patient is a 18-year-old female who presents with 3 days of headache. Patient has tried taking Tylenol and ibuprofen but only takes 1 pill of each at a time. Also reports mild nausea with the headache. Patient states she has had migraines and headaches in the past related to control. Patient has now been on control pills for 3 months. Patient was previously on control patch that cause significant headaches. Denies any vision changes, dizziness, unilateral weakness, tingling. Patient denies any upper respiratory symptoms, vomiting, diarrhea. Related Data Allergies Allergy/AdvReac Type Severity Reaction Status Date / Time No Known Allergies Allergy Verified 05/03/24 18:26 Review of Systems Review of Systems: All systems reviewed & are unremarkable except as noted in HPI and below Constitutional: Constitutional: Denies chills, Denies fatigue, Denies fever(s), Reports headache(s), Denies malaise and Denies weakness Eyes: Eyes: Denies blurry vision, Denies itchy eyes and Denies loss of vision ENT: Denies otalgia, Reports headache(s), Denies nasal congestion, Denies sinus pain and Denies sore throat Cardiovascular: Cardiovascular: Denies chest pain, Denies irregular heart rhythm and Denies dyspnea Respiratory: Respiratory: Denies cough and Denies dyspnea Gastrointestinal: Gastrointestinal: Denies abdominal pain, Denies diarrhea, Reports nausea and Denies vomiting Musculoskeletal: Musculoskeletal: Denies back pain, Denies myalgias and Denies arthralgias Integumentary/Breasts: Skin/Breast: Denies pruritus and Denies rash Neurologic: Denies headache(s), Denies loss of vision and Denies weakness Psychiatric: Psychiatric: Reports no additional psychiatric complaints Endocrine: Endocrine: Denies fatigue Allergic/Immunologic: Allergic/Immunologic: Denies itchy eyes PMFSH Past Medical History Medical History Migraine Daily headache Suppression of menses ADHD Screening examination for sexually transmitted disease Amenorrhea Anxiety Family History Family History Grandparent Diabetes mellitus Neoplasm of skin Social History Social History Smoking status: Former smoker Tobacco type: e-cigarettes/vaping Smoking end date: 03/19/23 Alcohol intake: never Substance use: former Substance use type: former substance user Do You Feel Safe in your Home?: Yes Lack of Transportation: No Lack of Food: Never True Current Housing: I Have Housing Concerned About Future Housing: No Difficulty Paying Gas/Electric Bills: No Difficulty Paying for Meds: No Currently Unemployed: YES Education: High School Diploma/GED Difficulty w/ Childcare or Family Care: No Living arrangements: with family Occupation/Education: occupation Additional occupation/education comments: [employer] Gender identity (if verbalized by the patient): Female Sexual Orientation (if Verbalized by the Patient): Straight or Heterosexual Spiritual care concerns: No Comments At time of signature, agree with nursing past medical, surgical, social and family history. There is no relevant family history pertinent to the presenting complaint. Exam Const: General: cooperative, healthy appearing, comfortable, no acute distress and well nourished Nutritional Appearance: well nourished Orientation/consciousness: patient oriented x3 Limitations: no limitations HENMT: Head: normal to inspection, normocephalic and atraumatic Ears: hearing grossly normal bilaterally, external ears normal, TM's normal bilaterally, EAC's normal and no periauricular adenopathy Face/Nose/Sinus: Normal external nose present, Normal nasal mucous membranes and turbinates present, normal facial exam, sinuses nontender and face symmetric Face and sinus: normal facial exam, sinuses nontender and face symmetric Mouth: Yes Normal oral and palatal mucosa present, Yes lip normal, Yes tongue normal, Yes Normal salivary glands and ducts present, Yes oropharynx normal and Yes moist mucous membranes Teeth and gingiva: dentition normal Throat: posterior oropharynx normal, tonsils normal and uvula midline Eyes: General: appearance normal, both eyes and all related structures Alignment and Position: alignment normal and position normal Periorbital: periorbital findings normal Eyelids: eyelids normal Pupils: Equal, round and reactive pupils present Neck: Neck: normal visual inspection, full ROM, no lymphadenopathy and supple Chest: Chest palpation & inspection: normal inspection of the chest and normal palpation of entire chest wall Resp: Effort & Inspection: normal respiratory effort and able to speak in complete sentences Auscultation: clear to auscultation bilaterally, no crackles, no rales, no rhonchi and no wheezes Cardio: Rate: regular rate Rhythm: regular rhythm Heart sounds: S1 normal heart sound present and S2 normal heart sound present GI: Inspection: normal to inspection Skin: General skin exam: normal color and no rashes or lesions noted Neuro: General: patient oriented x3 and moves all extremities Cranial nerves: Yes Equal, round and reactive pupils present Speech: normal speech Gait exam (Neuro): Normal gait present Extrem: General: normal to inspection, full ROM and no edema Psych: Appearance: grossly normal and well kempt Mental Status: mental status grossly normal Speech and movement: Normal speech and movement present Affect: normal affect Attitude: cooperative Thought process: Normal thought process present Course Course Emergency Course: Discharge instructions reviewed with patient, as well as provided in writing per nursing staff. The instructions also include specific and strict return/GO TO THE ER as well as f/u information. All questions have been answered, and the patient deny any further questions with discharge and discharge plan. Portions of this record may have been created with voice recognition software Level of Care: Express Care Visit Vital Signs Vital signs: Vital Signs Temperature 36.7 C 05/03/24 18:19 Pulse Rate 92 05/03/24 18:19 Respiratory Rate 18 05/03/24 18:19 Blood Pressure 117/71 05/03/24 18:19 Pulse Oximetry 100 05/03/24 18:19 Oxygen Delivery Room Air 05/03/24 18:19 Temperature 36.7 C 05/03/24 18:19 Pulse Rate 92 05/03/24 18:19 Respiratory Rate 18 05/03/24 18:19 Blood Pressure 117/71 05/03/24 18:19 Pulse Oximetry 100 05/03/24 18:19 Oxygen Delivery Room Air 05/03/24 18:19 Reviewed MDM - URI/Sore Throat MDM Narrative Medical decision making narrative: Educated patient on proper dosing of Tylenol ibuprofen for headache treatment. Discussed possibility of hormone imbalance with control causing headaches. Patient to follow-up with PCP or OBGYN if they continue. Offered Toradol shot. Patient declines and states when she goes to the ER in the give her medication she is immediately knocked out and does not want to try. Pt well hydrated appearing, in no respiratory distress, hemodynamically stable. Recommend supportive care. The patient is stable at time of discharge the clinical impression was discussed and the patient was given the opportunity to ask questions, which were addressed as completely as possible given the information available at present. Anticipatory guidance and return to care precautions were discussed and the importance of primary care follow-up was stressed and encouraged. The patient voiced understanding of the plan, indications to return, and the need for follow-up. Exam findings show no acute concerns or changes; patient is non-toxic appearing and is in no distress.? Patient is appropriate for outpatient treatment and follow-up.? Differential Diagnosis Differential diagnosis: Likely viral infection, influenza and other (Hormone imbalance, headache, migraine) Medical Records Attestation: I reviewed the patient's medical records. Lab Data Attestation: I reviewed the patient's lab results. Labs: Lab Results 05/03/24 Range/Units 18:52 POC Influenza A Ag Negative (Negative) POC Influenza B Ag Negative (Negative) POC SARS CoV-2 Ag Negative (Negative) Discharge Plan Discharge Clinical Impression: Headache Qualifiers: Headache type: unspecified Headache chronicity pattern: acute headache Intractability: intractable Qualified Code(s): R51.9 - Headache, unspecified Patient Disposition: Home, Self-Care Condition: Stable Instructions: Acute Headache (ED) Additional Instructions: You were negative for COVID and FLU Take Zofran as needed for nausea Take Benadryl 25-50 mg every 4 hours as needed For pain, you may take: Tylenol 650-1000mg by mouth every 6 hours. Do not exceed 4000mg in 24 hours. Advil (Ibuprofen) 600 mg by mouth every 6 hours. Do not exceed 2400mg in 24 hours. Take Motrin alternating with Tylenol for pain and fever alternating every 3 hours. 8 AM: Tylenol-2 11 AM: Ibuprofen-3 2 PM: Tylenol-2 5 PM: Ibuprofen-3 8 PM: Tylenol-2 11 PM: Ibuprofen-3 2 AM: Tylenol-2 5 AM: Ibuprofen-3 Follow-up with PCP as needed or if you have worsening headache, vision changes, dizziness my persistent vomiting go to the emergency department. Patient Language: Nigerian Prescriptions: New ondansetron 4 mg tablet,disintegrating 4 mg PO Q6-8H PRN (Reason: nausea and vomiting) Qty: 7 0RF No Action norethindrone (contraceptive) 0.35 mg tablet 0.35 mg PO DAILY Qty: 84 3RF Follow-up/Referrals: PHYSICIAN,PROVIDER RELATIONS REP [Primary Care Provider] - 3 Days Stand Alone Forms: Work/School Release IP Time of Disposition: 18:48
[2024-05-03 18:19] VITALS: BP 117/71; PULSE 92; RESP 18; TEMP 36.7; O2SAT 100
[2024-05-03 18:54] LABS: EDCOVIDSCREEN Negative (Negative); EDINFLUASCREEN Negative (Negative); EDINFLUBSCREEN Negative (Negative)
== END 2024-05-03 18:58 | disposition home or self-care (01) ==
PROVIDERS: Emergency Provider Nurse Practitioner Family
DX: R51.9 Headache, unspecified (principal); Z87.891 Personal history of nicotine dependence; Z20.822 Contact with and (suspected) exposure to COVID-19
CPT/HCPCS: 87426; 87804; 99213; G0463

== ENCOUNTER 2024-07-15 12:00 | Outpatient (CLI) | payer MEDICAID, SELFPAY ==
--- OUTSIDE RECORDS SUMMARY | 2024-07-15 13:15 | XMS_ITS | Clinical Summary ---
Author Organization [facility] [employer] Address [address] [place] [address] Care Team Providers Care Vinegar Maker Name Role Phone Stephane Lira MD Primary Care Provider + Jayjay Nguyen MD Unavailable Source Comments [facility] [employer],non-owned Affiliates and Associated Physician Practices is amultiple site organization consisting of ambulatory clinics and hospital sitesin [place], [place], [place] and [place]. This disclosure is being madepursuant to the Care Everywhere program and may not contain all information available regarding this patient. Last updated 17.[facility] [employer] Allergies No known active allergies Medications * Be aware that medications may not be up to date on this document. Alwaysverify current medications with the patient. ibuprofen (MOTRIN) 200 MG tablet Take 400 mg by mouth every 6 hours as needed for Pain Active Active Problems Problem Noted Date Diagnosed Date Dizziness Social History Tobacco Use Types Packs/Day Years Used Date Smoking Tobacco: Passive Smo ke Exposure - Never Smoker Smokeless Tobacco: Never Comments Unknown Sex and Gender Information Value Date Recorded Sex Assigned at Not on file Legal Sex Female 6:27 PM IT TECHNICAL ARCHITECT Gender Identity Not on file Sexual Orientation Not on file Last Filed Vital Signs Vital Sign Reading Time Taken Comments Blood Pressure - - Pulse - - Temperature - - Respiratory Rate - - Oxygen Saturation - - Inhaled Oxygen Concentration - - Weight 67.3 kg (148 lb 5.9 oz) 03/14/2019 3:31 P M IT TECHNICAL ARCHITECT Height 166 cm (5' 5.35 ) 03/14/2019 3:31 PM IT TECHNICAL ARCHITECT Body Mass Index 24.42 03/14/2019 3:31 PM IT TECHNICAL ARCHITECT Plan of Treatment Health Maintenance Due Date Last Done Comments HIV SCREENING 11/03/2018 HPV VACCINE (1 - 3-dose series) 11/03/2018 CHLAMYDIA/GONORRHEA SCREENING 2019 MENINGOCOCCAL (Group B) VACC INE SHARED DECISION-MAKING (1 of 2 - Standard) 2019 HEPATITIS C SCREENING 10/30/2021 DTAP/TDAP/TD VACCINES (1 - Tdap) 11/03/2022 HEPATITIS B VACCINE (1 of 3 - 19+ 3-dose series) 11/03/2022 COVID-19 VACCINE (1 - 2023-2 5 season) 2023 DEPRESSION SCREENING 03/19/2024 INFLUENZA VACCINE (Season Ended) 2024 ZOSTER VACCINE (1 of 2) 11/03/2053 HIB VACCINE Aged Out No longer eligi ble based on patient's age to complete this topic MENINGOCOCCAL GROUPS A/C/Y/W VACCINE Aged Out No longer eligible b ased on patient's age to complete this topic PNEUMOCOCCAL VACCINE Aged Out No long er eligible based on patient's age to complete this topic Insurance [facility] SELF PAY NO INSURANCE Member Subscriber Plan / Payer (Ef fective for All Dates) Name:Della Mcfarlane Member ID:Not on file Relation to Subscriber:Not on file Name:DELLA MCFARLANE Subscriber ID:Not on file Address: [address] [place] [phone] Payer ID:Not on file Group ID:Not on file Type:Self Pay Address: [place], [place] [facility] SELF PAY NO INSURANCE Member Subscriber Plan / Payer (Ef fective for All Dates) Name:Della Mcfarlane Member ID:Not on file Relation to Subscriber:Not on file Name:DELLA MCFARLANE Subscriber ID:Not on file Address: [address] [place] [address] Payer ID:Not on file Group ID:Not on file Type:Self Pay Address: [place], [place] [facility] SELF PAY NO INSURANCE Member Subscriber Plan / Payer (Ef fective for All Dates) Name:Della Mcfarlane Member ID:Not on file Relation to Subscriber:Not on file Name:DELLA MCFARLANE Subscriber ID:Not on file Address: [address] [place] [phone] Payer ID:Not on file Group ID:Not on file Type:Self Pay Address: [place], [place] Care Teams Vinegar Maker Relationship Specialty Start Date End Date Stephane Lira MD PCP - General Internal Medicine 03/05/19 Jayjay Nguyen MD Orthopedic Surgery 03/14/19
--- OUTSIDE RECORDS SUMMARY | 2024-07-15 13:15 | XMS_ITS | Clinical Summary ---
Author Organization [facility] Address [address] [place] [id number] Care Team Providers Care Beauty Therapist Name Role Phone Unavailable Primary Care Provider Unavailabl e Social History Tobacco Use Types Packs/Day Years Used Date Smoking Tobacco: Never Assessed Comments Unknown Sex and Gender Information Value Date Recorded Sex Assigned at Not on file Legal Sex Female 7:21 PM CDT Gender Identity Not on file Sexual Orientation Not on file Plan of Treatment Health Maintenance Due Date Last Done Comments Annual Physical 11/03/2006 HPV Vaccines (1 - 3-dose series) 11/03/2018 Meningococcal B Vaccine (1 o f 2 - Standard) 2019 Hepatitis C 11/03/2021 DTaP, Tdap and Td Vaccines ( 1 - Tdap) 11/03/2022 Hepatitis B Vaccines (1 of 3 - 19+ 3-dose series) 11/03/2022 COVID-19 Vaccine (1 - 2023-2 5 season) 2023 Meningococcal Vaccine Aged Out No rafael erin eligible based on patient's age to complete this topic Pneumococcal Vaccine: Pediat rics (0 to 5 Years) and At-Risk Patients (6 to 49 Years) Aged Out No longer eligible b ased on patient's age to complete this topic RSV Immunizations Under 20 Months Aged Out No longer eligible based on patient's age to complete this topic
== END 2024-07-15 12:01 | disposition home or self-care (01) ==
LOC: ANHLAB 12:03
PROVIDERS: Visit Provider Student in an Organized Health Care Education/Training Program
DX: R30.0 Dysuria (principal)
CPT/HCPCS: 87086

== ENCOUNTER 2024-07-29 15:05 | Emergency (ER) | payer OTHER, SELFPAY ==
--- OUTSIDE RECORDS SUMMARY | 2024-07-29 15:09 | XMS_ITS | Clinical Summary ---
Author Organization [facility] Address [address] [place] [id number] Care Team Providers Care Portrait Artist Name Role Phone Unavailable Primary Care Provider [...]
--- OUTSIDE RECORDS SUMMARY | 2024-07-29 15:09 | XMS_ITS | Clinical Summary ---
Author Organization [facility] [employer] Address [address] [place] [address] Care Team Providers Care Table Machine Operator Name Role Phone Stephane Lira MD Primary Care Provider + Jayjay Nguyen MD Unavailable Source Comments [facility] [employer],non-owned Affiliates and Associated Physician Practices is amultiple site organization consisting of ambulatory clinics and hospital sitesin [place], [place], [place] and [place]. This disclosure is being madepursuant to the Care Everywhere program and may not contain all information available regarding this patient. 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 Gender Identity Not on file Sexual Orientation Not on file Last Filed Vital Signs Vital Sign Reading Time Taken Comments Blood Pressure - - Pulse - - Temperature - - Respiratory Rate - - Oxygen Saturation - - Inhaled Oxygen Concentration - - Weight 67.3 kg (148 lb 5.9 oz) 03/14/2019 3:31 P M GRADER GREEN MEAT Height 166 cm (5' 5.35 ) 03/14/2019 3:31 PM GRADER GREEN MEAT Body Mass Index 24.42 03/14/2019 3:31 PM GRADER GREEN MEAT Plan of Treatment Health Maintenance Due Date [...] patient's age to complete this topic Insurance [facility] SELF PAY NO INSURANCE Member Subscriber Plan / Payer (Ef fective for All Dates) Name:Della Mcfarlane Member ID:Not on file Relation to Subscriber:Not on file Name:DELLA MCFARLANE Subscriber ID:Not on file Address: [address] [place] [phone] Payer ID:Not on file Group ID:Not on file Type:Self Pay Address: [place], [place] [facility] SELF PAY NO INSURANCE Member Subscriber Plan / Payer (Ef fective for All Dates) Name:Della Mcfarlane Member ID:Not on file Relation to Subscriber:Not on file Name:DELLA MCFARLANE Subscriber ID:Not on file Address: [address] [place] [address] Payer ID:Not on file Group ID:Not on file Type:Self Pay Address: [place], [place] [facility] SELF PAY NO INSURANCE Member Subscriber Plan / Payer (Ef fective for All Dates) Name:Della Mcfarlane Member ID:Not on file Relation to Subscriber:Not on file Name:DELLA MCFARLANE Subscriber ID:Not on file Address: [address] [place] [phone] Payer ID:Not on file Group ID:Not on file Type:Self Pay Address: [place], [place] Care Teams Table Machine Operator Relationship Specialty Start Date End Date Stephane Lira MD PCP - General Internal Medicine 03/05/19 Jayjay Nguyen MD Orthopedic Surgery 03/14/19
--- NOTE | 2024-07-29 15:13 | ED_ITS ---
HPI - URI/Sore Throat General Chief Complaint: Upper Respiratory Infection Stated Complaint: Sore throat / cough Time Seen by Provider: 07/29/24 15:13 Source: patient, RN notes reviewed and old records reviewed Mode of arrival: ambulatory Limitations: no limitations History of Present Illness HPI Narrative: 18-year-old female presents to the [facility] with complaints of cough, sore throat denies fevers. has not had a period since May 31. States that her urine smells different. No CVA tenderness. Denies abdominal pain. Denies chest pain. No treatment prior to arrival Related Data Allergies Allergy/AdvReac Type Severity Reaction Status Date / Time No Known Allergies Allergy Verified 07/29/24 15:18 Review of Systems Review of Systems: All systems reviewed & are unremarkable except as noted in HPI and below Constitutional: Constitutional: Reports as per HPI, Reports fatigue and Denies fever(s) ENT: Reports as per HPI and Reports sore throat Cardiovascular: Cardiovascular: Reports no additional cardiovascular complaints, Denies chest pain and Denies dyspnea Respiratory: Respiratory: Reports as per HPI, Denies chest congestion, Reports cough and Denies dyspnea Genitourinary: Genitourinary: Reports as per HPI Musculoskeletal: Musculoskeletal: Reports no additional musculoskeletal complaints Integumentary/Breasts: Skin/Breast: Reports system reviewed and no additional complaints, except as docu PMFSH Past Medical History Medical History Migraine Daily headache Suppression of menses ADHD Screening examination for sexually transmitted disease Amenorrhea Anxiety Family History Family History Grandparent Diabetes mellitus Neoplasm of skin Social History Social History Smoking status: Former smoker Tobacco type: e-cigarettes/vaping Smoking end date: 03/19/23 Alcohol intake: never Substance use: former Substance use type: former substance user Do You Feel Safe in your Home?: Yes Lack of Transportation: No Lack of Food: Never True Current Housing: I Have Housing Concerned About Future Housing: No Difficulty Paying Gas/Electric Bills: No Difficulty Paying for Meds: No Currently Unemployed: YES Education: High School Diploma/GED Difficulty w/ Childcare or Family Care: No Living arrangements: with family Occupation/Education: occupation Additional occupation/education comments: [employer] Gender identity (if verbalized by the patient): Female Sexual Orientation (if Verbalized by the Patient): Straight or Heterosexual Spiritual care concerns: No Comments At the time of my signature, I reviewed and agree with the nursing past medical, surgical, social, and family history. There is no relevant family history pertinent to the patient complaint. Exam Const: General: cooperative, healthy appearing, comfortable, no acute distress, well developed, alert and well nourished Nutritional Appearance: well nourished Orientation/consciousness: patient oriented x3 Limitations: no limitations HENMT: Head: normal to inspection Ears: hearing grossly normal bilaterally, external ears normal, TM's normal bilaterally, EAC's normal, mastoids normal and no periauricular adenopathy Face/Nose/Sinus: Normal external nose present Mouth: Yes Normal oral and palatal mucosa present, Yes lip normal, Yes tongue normal and Yes moist mucous membranes Throat: posterior oropharynx normal, uvula midline and uvular edema Eyes: General: appearance normal, both eyes and all related structures Alignment and Position: alignment normal Neck: Neck: normal visual inspection, full ROM, no lymphadenopathy and no meningeal signs Chest: Chest palpation & inspection: normal inspection of the chest Resp: Effort & Inspection: normal respiratory effort and able to speak in complete sentences Auscultation: clear to auscultation bilaterally, no crackles, no rales, no rhonchi and no wheezes Cardio: Rate: regular rate GI: GI Palp: No abdominal tenderness : General: Yes no CVA tenderness Skin: General skin exam: normal color and no rashes or lesions noted Neuro: General: patient oriented x3, gait normal, moves all extremities and no meningeal signs Cognition (Neuro): normal cognition Speech: normal speech Gait exam (Neuro): Normal gait present Extrem: General: normal to inspection, full ROM, capillary refill normal and normal gait Psych: Appearance: grossly normal and well kempt Mental Status: mental status grossly normal Speech and movement: Normal speech and movement present and Clear speech present Affect: normal affect Attitude: cooperative Course Course Level of Care: Express Care Visit Vital Signs Vital signs: Vital Signs Temperature 97.1 F L 07/29/24 15:15 Pulse Rate 99 07/29/24 15:15 Respiratory Rate 18 07/29/24 15:15 Blood Pressure 126/62 07/29/24 15:15 Pulse Oximetry 99 07/29/24 15:15 Oxygen Delivery Room Air 07/29/24 15:15 Temperature 97.1 F L 07/29/24 15:15 Pulse Rate 99 07/29/24 15:15 Respiratory Rate 18 07/29/24 15:15 Blood Pressure 126/62 07/29/24 15:15 Pulse Oximetry 99 07/29/24 15:15 Oxygen Delivery Room Air 07/29/24 15:15 Reviewed MDM - URI/Sore Throat MDM Narrative Medical decision making narrative: patient sitting in exam. Patient is nontoxic vitals stable. Patient presents with multiple complaints. Flu, COVID, strep all negative. Urine test negative. Urine shows probability of a UTI, will cover with Macrobid and send for culture patient appropriate for outpatient treatment with close follow-up Discharge instructions reviewed with patient, as well as provided in writing per nursing staff. The instructions also include specific and strict return/GO TO THE ER as well as f/u information. All questions have been answered, and the patient deny any further questions with discharge and discharge plan. Some parts of this dictation were generated by voice recognition software and may contain typographical and/or grammatical inaccuracies. Differential Diagnosis Differential diagnosis: Likely upper respiratory infection, otitis media, sinusitis, viral infection, influenza, pharyngitis and other Lab Data Labs: Lab Results 07/29/24 07/29/24 07/29/24 Range/Units 15:30 15:33 15:43 POC Urine Color Dark POC Urine Clarity Cloudy POC Urine pH 5.5 POC Ur Specif [place] 1.030 POC Urine Protein 1+ (Negative) POC Ur Glucose (UA) Negative (Negative) POC Urine Ketones Trace (Negative) POC Urine Blood Negative (Negative) POC Urine Nitrite Negative (Negative) POC Urine Bilirubin 1+ (Negative) POC Urine Urobilinogen 0.2 POC U Leukocyte Esteras 1+ (Negative) POC Urine HCG, Qual Negative (Negative) POC Influenza A Ag Negative (Negative) POC Influenza B Ag Negative (Negative) POC SARS CoV-2 Ag Negative (Negative) POC Grp A Strep Screen Negative (Negative) Reviewed Critical Care Time Critical Care Time Critical Care Time: No Discharge Plan Discharge Clinical Impression: Urine test negative Upper respiratory infection Qualifiers: URI type: unspecified viral URI Qualified Code(s): J06.9 - Acute upper respiratory infection, unspecified Pharyngitis Qualifiers: Pharyngitis/tonsillitis etiology: unspecified etiology Qualified Code(s): J02.9 - Acute pharyngitis, unspecified UTI (urinary tract infection) Qualifiers: Urinary tract infection type: acute cystitis Hematuria presence: without hematuria Qualified Code(s): N30.00 - Acute cystitis without hematuria Patient Disposition: Home Condition: Stable Instructions: Antibiotic Form, Urinary Tract Infection in Women (DC), Pharyngitis (ED), Upper Respiratory Infection (ED) Additional Instructions: Your rapid strep swab was negative today at [facility]. A throat culture will be sent to the laboratory for further testing. If the test is positive, you will receive a phone call within 48 hours and an appropriate antibiotic will be initiated at that time. Your rapid COVID test were negative Your rapid flu test was negative It is very important to treat your symptoms. Drink plenty of water, Gatorade, Pedialyte, ice pops or Jell-O. -Alternate Tylenol and Motrin per package directions for fever or pain. You can alternate every 4 hours -Antihistamine medication such as Zyrtec/Claritin/Hailey during the day can help improve symptoms. -doing daily nasal irrigations can help relieve pressure your sinuses. Things like a Neti pot -Use Flonase twice a day for 5 days then daily to help reduce the inflammation and dry up your sinuses. -You can also use Mucinex. Be sure to drink plenty of water with this medication at least 8 ounces with every dose and it is important to drink 8 to 10 glasses of water per day. Water is a natural decongestant -Eat and drink things that are easy to swallow, like tea or soup, or popsicles. -Oral rinses such as: Salt water gargles and/or may use topical anesthetic (eg. Chloraseptic spray) or lozenges to relieve dryness or throat pain). -Frequent hand washing or hand maritime officer is one of the best ways to prevent spread of infection. -Using a vaporizer or humidifier at night will also help thin secretions and help with coughing up phlegm. -Follow up with primary care provider in 7-10 days if condition is not improving - For new or worsening symptoms go directly to the nearest ER Increased water intake Take Tylenol as needed for pain Take antibiotic as prescribed Today your urine dip showed a probability of a UTI. You have been prescribed an antibiotic. Your urine will be sent to our lab for a culture. If at that time a bacteria grows that is not covered by the antibiotic prescribed you will be notified. Follow-up with primary care For new or worsening symptoms go directly to the emergency room Patient Language: Brazilian Prescriptions: New nitrofurantoin monohyd/m-cryst [Macrobid] 100 mg capsule 100 mg PO Q12H 5 Days Qty: 10 0RF Rx Instructions: must administer with a meal/food Follow-up/Referrals: PHYSICIAN,DRAFTER TOPOGRAPHICAL [Primary Care Provider] - Parag Moreno MD [Physician] - Time of Disposition: 15:47
[2024-07-29 15:15] VITALS: BP 126/62; PULSE 99; RESP 18; TEMP 36.2; O2SAT 99
[2024-07-29 15:35] LABS: BEDSIDEPREGUCG Negative (Negative); EDSTREPNEGPOS1 Negative (Negative)
[2024-07-29 15:35] LABS: EDUAAPPEAR Cloudy; EDUABILI 1+ (Negative); EDUABLOOD Negative (Negative); EDUACOLOR1 Dark; EDUAGLUCOSE Negative (Negative); EDUAKETONE Trace (Negative); EDUALEUKO 1+ (Negative); EDUANITRATE Negative (Negative); EDUAPH 5.5; EDUAPROTEIN 1+ (Negative); EDUAUROBILI 0.2
[2024-07-29 15:45] LABS: EDCOVIDSCREEN Negative (Negative); EDINFLUASCREEN Negative (Negative); EDINFLUBSCREEN Negative (Negative)
== END 2024-07-29 15:55 | disposition home or self-care (01) ==
PROVIDERS: Emergency Provider Nurse Practitioner
DX: Z32.02 Encounter for pregnancy test, result negative (principal); J06.9 Acute upper respiratory infection, unspecified; J02.9 Acute pharyngitis, unspecified; N30.00 Acute cystitis without hematuria; Z20.822 Contact with and (suspected) exposure to COVID-19; Z87.891 Personal history of nicotine dependence
CPT/HCPCS: 81003; 81025; 87081; 87086; 87426; 87804; 87880; 99213; G0463

== ENCOUNTER 2024-08-31 16:23 | Emergency (ER) | payer OTHER, SELFPAY ==
--- OUTSIDE RECORDS SUMMARY | 2024-08-31 16:26 | XMS_ITS | Clinical Summary ---
Author Organization [facility] [employer] Address [address] [address] Care Team Providers Care Seed Corn Manager Production Name Role Phone Stephane Lira MD Primary Care Provider + Jayjay Nguyen MD Unavailable Source Comments [facility] [employer],non-owned Affiliates and Associated Physician Practices is amultiple site organization consisting of ambulatory clinics and hospital sitesin [place], [place], [place] and [place]. This disclosure is being madepursuant to the Care Everywhere program and may not contain all information available regarding this patient. Last updated 17.[facility] [employer] Allergies No known active allergies Medications * [...] on file Legal Sex Female 6:27 PM YARDAGE CONTROL CLERK Gender Identity Not on file Sexual Orientation Not on file Last Filed Vital Signs Vital Sign Reading Time Taken Comments Blood Pressure - - Pulse - - Temperature - - Respiratory Rate - - Oxygen Saturation - - Inhaled Oxygen Concentration - - Weight 67.3 kg (148 lb 5.9 oz) 03/14/2019 3:31 P M YARDAGE CONTROL CLERK Height 166 cm (5' 5.35) 03/14/2019 3:31 PM YARDAGE CONTROL CLERK Body Mass Index 24.42 03/14/2019 3:31 PM YARDAGE CONTROL CLERK Plan of Treatment Health Maintenance Due Date [...] patient's age to complete this topic Insurance [facility] SELF PAY NO INSURANCE Member Subscriber Plan / Payer (Ef fective for All Dates) Name:Della Mcfarlane Member ID:Not on file Relation to Subscriber:Not on file Name:DELLA MCFARLANE Subscriber ID:Not on file Address: [address] [place] [phone] Payer ID:Not on file Group ID:Not on file Type:Self Pay Address: [place], [place] [facility] SELF PAY NO INSURANCE Member Subscriber Plan / Payer (Ef fective for All Dates) Name:Della Mcfarlane Member ID:Not on file Relation to Subscriber:Not on file Name:DELLA MCFARLANE Subscriber ID:Not on file Address: [address] [place] [address] Payer ID:Not on file Group ID:Not on file Type:Self Pay Address: [place], [place] [facility] SELF PAY NO INSURANCE Member Subscriber Plan / Payer (Ef fective for All Dates) Name:Della Mcfarlane Member ID:Not on file Relation to Subscriber:Not on file Name:DELLA MCFARLANE Subscriber ID:Not on file Address: [address] [place] [phone] Payer ID:Not on file Group ID:Not on file Type:Self Pay Address: [place], [place] Care Teams Seed Corn Manager Production Relationship Specialty Start Date End Date Stephane Lira MD PCP - General Internal Medicine 03/05/19 Jayjay Nguyen MD Orthopedic Surgery 03/14/19
[2024-08-31 16:30] VITALS: BP 117/71; PULSE 88; RESP 16; TEMP 36.2; O2SAT 99
--- OUTSIDE RECORDS SUMMARY | 2024-08-31 17:43 | XMS_ITS | Clinical Summary ---
Author Organization [facility] [employer] Address [address] [place] [address] Care Team Providers Care Geophysics Professor Name Role Phone Stephane Lira MD Primary Care Provider + Jayjay Nguyen MD Unavailable Source Comments [facility] [employer],non-owned Affiliates and Associated Physician Practices is amultiple site organization consisting of ambulatory clinics and hospital sitesin [place], [place], [place] and [place]. This disclosure is being madepursuant to the Care Everywhere program and may not contain all information available regarding this patient. Last updated 17.[facility] [employer] Allergies No known active allergies Medications * [...] on file Legal Sex Female 6:27 PM PARTS SALES ADVISOR Gender Identity Not on file Sexual Orientation Not on file Last Filed Vital Signs Vital Sign Reading Time Taken Comments Blood Pressure - - Pulse - - Temperature - - Respiratory Rate - - Oxygen Saturation - - Inhaled Oxygen Concentration - - Weight 67.3 kg (148 lb 5.9 oz) 03/14/2019 3:31 P M PARTS SALES ADVISOR Height 166 cm (5' 5.35) 03/14/2019 3:31 PM PARTS SALES ADVISOR Body Mass Index 24.42 03/14/2019 3:31 PM PARTS SALES ADVISOR Plan of Treatment Health Maintenance Due Date [...] patient's age to complete this topic Insurance [facility] SELF [facility]Y NO INSURANCE Member Subscriber Plan / Payer (Ef fective for All Dates) Name:Della Mcfarlane Member ID:Not on file Relation to Subscriber:Not on file Name:DELLA MCFARLANE Subscriber ID:Not on file Address: [address] [place] [id number] Payer ID:Not on file Group ID:Not on file Type:Self Pay Address: [place], [place] [facility] S[employer]F PAY NO INSURANCE Member Subscriber Plan / Payer (Ef fective for All Dates) Name:Della Mcfarlane Member ID:Not on file Relation to Subscriber:Not on file Name:DELLA MCFARLANE Subscriber ID:Not on file Address: [address] [place] [address] Payer ID:Not on file Group ID:Not on file Type:Self Pay Address: [place], [place] [facility] S[employer] PAY NO INSURANCE Member Subscriber Plan / Payer (Ef fective for All Dates) Name:Della Mcfarlane Member ID:Not on file Relation to Subscriber:Not on file Name:DELLA MCFARLANE Subscriber ID:Not on file Address: [address] [place] [phone] Payer ID:Not on file Group ID:Not on file Type:Self Pay Address: [place], [place] Care Teams Geophysics Professor Relationship Specialty Start Date End Date Stephane Lira MD PCP - General Internal Medicine 03/05/19 Jayjay Nguyen MD Orthopedic Surgery 03/14/19
--- NOTE | 2024-08-31 18:17 | ED_ITS ---
HPI - Female Genitourinary General Chief complaint: Urogenital-Female Stated complaint: recurrent UTI's, burning, vaginal irritation Time Seen by Provider: 08/31/24 17:32 History of Present Illness HPI Narrative: Patient is a 18-year-old female who presents to the ER with concerns of burning with urination along with a ?red, puffy, sensitive to touch vagina. She reports in the last 2 months she has been diagnosed 3 times with the urinary tract infection. Patient endorses mild belly pain. She reports her last menstrual period was May 2024. Patient reports she has taken tests at home and they have been negative. She also reports she has been using baby r valentin cream, which has not helped relieve her symptoms. Patient denies any medical history besides a UTI that went to my kidney. She denies any back pain, recent fevers, or abnormal vaginal discharge. Patient would like to be checked for STDs. Related Data Allergies Allergy/AdvReac Type Severity Reaction Status Date / Time No Known Allergies Allergy Verified 07/29/24 15:18 Review of Systems Review of Systems: All systems reviewed & are unremarkable except as noted in HPI and below PMFSH Past Medical History Medical History Migraine Daily headache Suppression of menses ADHD Screening examination for sexually transmitted disease Amenorrhea Anxiety Family History Family History Grandparent Diabetes mellitus Neoplasm of skin Social History Social History Smoking status: Former smoker Tobacco type: e-cigarettes/vaping Smoking end date: 03/19/23 Alcohol intake: never Substance use: former Substance use type: former substance user Do You Feel Safe in your Home?: Yes Lack of Transportation: No Lack of Food: Never True Current Housing: I Have Housing Concerned About Future Housing: No Difficulty Paying Gas/Electric Bills: No Difficulty Paying for Meds: No Currently Unemployed: YES Education: High School Diploma/GED Difficulty w/ Childcare or Family Care: No Living arrangements: with family Occupation/Education: occupation Additional occupation/education comments: [employer] Gender identity (if verbalized by the patient): Female Sexual Orientation (if Verbalized by the Patient): Straight or Heterosexual Spiritual care concerns: No Exam Narrative: GENERAL: Well appearing, well-nourished, non-toxic, in no acute distress. HEAD: Normocephalic, atraumatic. NECK: Supple. No adenopathy, no masses. RESPIRATORY: Airway patent, respirations nonlabored. Clear to auscultation bilaterally, no rales, rhonchi, wheezing. CARDIOVASCULAR: Regular rate and rhythm without murmurs, rubs, or gallops. Peripheral pulses 2+ and equal bilaterally. ABDOMINAL: Soft, nontender, nondistended, no hepatosplenomegaly. Normoactive BS. MUSCULOSKELETAL: Moves all extremities. Strength/ROM intact without gross deformities. SKIN: Warm, dry, normal color. No rashes. NEURO: A&O X3. Speech clear. Cranial nerves II-XII intact. No ataxic movements. PSYCHIATRIC: Appropriate mood and affect. Normal interaction. : Patient's labia majora is red and swollen. No speculum was used during the examination but no visible discharge was coming from patient's vaginal area. Course Vital Signs Vital signs: Vital Signs Temperature 36.2 C L 08/31/24 16:30 Pulse Rate 88 08/31/24 16:30 Respiratory Rate 16 08/31/24 16:30 Blood Pressure 117/71 08/31/24 16:30 Pulse Oximetry 99 08/31/24 16:30 Oxygen Delivery Room Air 08/31/24 16:30 Temperature 36.2 C L 08/31/24 16:30 Pulse Rate 81 08/31/24 19:08 Respiratory Rate 18 08/31/24 19:08 Blood Pressure 108/58 L 08/31/24 19:08 Pulse Oximetry 99 08/31/24 19:08 Oxygen Delivery Room Air 08/31/24 16:30 MDM - Female Genitourinary MDM Narrative Medical decision making narrative: Patient is a 18-year-old female who presents to the ER with concerns of burning with urination along with a ?red, puffy, sensitive to touch vagina. She reports in the last 2 months she has been diagnosed 3 times with the urinary tract infection. Patient endorses mild belly pain. She reports her last menstrual period was May 2024. Patient reports she has taken tests at home and they have been negative. She also reports she has been using baby rash cream, which has not helped relieve her symptoms. Patient denies any medical history besides a UTI that went to my kidney. She denies any back pain, recent fevers, or abnormal vaginal discharge. Patient would like to be checked for STDs. Labs Ordered: UA, GC chlamydia, Trichomonas Imaging Ordered: None necessary Medications Ordered: Fluconazole 200 mg p.o. Results: Patient's urinalysis did not indicate a UTI. Her vaginal exam indicated a yeast infection. Diagnosis: Vaginal Yeast infection Patient Education/Shared MDM: Results of lab work shared with patient. She will be given her 1st dose of Diflucan here in the ER and sent home with a prescription for another Diflucan. Patient strongly advised to maintain hydration status upon discharge and follow-up and establish care with a PCP as soon as possible. Pt will be discharged home with a prescription for Diflucan. Strict return precautions provided. Patient verbalized understanding and is in agreement with plan. Vital signs stable at time of discharge. All questions answered. Differential Diagnosis Differential diagnosis: Likely urinary tract infection, bacterial vaginosis and other (vaginal yeast infection) Lab Data Attestation: I reviewed the patient's lab results. Labs: Lab Results 08/31/24 08/31/24 08/31/24 Range/Units 18:06 18:14 18:17 Urine Color Yellow (Yellow) Urine Appearance Clear (Clear) Urine pH 5.5 (5.0-9.0) Ur Specific [place] 1.024 (1.001-1.035) Urine Protein Negative (Negative) mg/dL Urine Glucose (UA) Negative (Negative) mg/dL Urine Ketones Negative (Negative) mg/dL Ur Blood (Man) Negative (Negative) Urine Nitrate Negative (Negative) Urine Bilirubin Negative (Negative) Urine Urobilinogen 0.2 (<2.0) mg/dL Add Ur Microanalysis Reviewed Leukocyte Esterase Rfl Trace H (Negative) PATTI/UL Urine RBC 21-50 H (0-2) /hpf Urine WBC 0-5 (0-3) /hpf Ur Squamous Epith Cells None seen (Few) /hpf Urine Bacteria None seen /hpf Urine Casts 0-2 POC Urine HCG, Qual Negative (Negative) C. trachomatis (PCR) Pending N. gonorrhoeae (PCR) Pending T. vaginalis (PCR) Pending Discharge Plan Discharge Clinical Impression: Vaginal yeast infection Patient Disposition: Home Condition: Stable Instructions: Antibiotic Form, Yeast Infection (ED) Additional Instructions: Please return to the ER with any worsening symptoms. Follow-up and establish care with a primary care provider as soon as possible. Take all medications as prescribed. Patient Language: Nepalese Prescriptions: New fluconazole [Diflucan] 100 mg tablet 200 mg PO DAILY Qty: 1 0RF No Action nitrofurantoin monohyd/m-cryst [Macrobid] 100 mg capsule 100 mg PO Q12H 5 Days Qty: 10 0RF Rx Instructions: must administer with a meal/food Follow-up/Referrals: PHYSICIAN,LAP MACHINE OPERATOR [Primary Care Provider] - Parag Moreno MD [Physician] - (primary care provider) Time of Disposition: 19:58
[2024-08-31 18:18] LABS: BEDSIDEPREGUCG Negative (Negative)
[2024-08-31 18:43] LABS: Add Urine Microscopic? YES; Appearance Urine Clear (Clear); Bacteria Urine None Seen /hpf; Bilirubin Urine Negative (Negative); Blood Urine Negative (Negative); Color Urine Yellow (Yellow); Glucose Urine UA Negative (Negative); Ketones Urine Negative (Negative); Leukocyte Esterase Ur Trace LEU/UL (Negative); Need Manual Microscopic Reviewed; Nitrate Urine Negative (Negative); Non Pathogenic Casts 0-2; Protein Urine Negative (Negative); RBC Urine 21-50 /hpf (0-2); Specific Grav Ur 1.024 (1.001-1.035); Squamous Epithelial Cell Urine None Seen /hpf (Few); Urobilinogen Urine 0.2 mg/dL (<2.0); WBC Urine 0-5 /hpf (0-3); pH Urine 5.5 (5.0-9.0)
[2024-08-31] MEDS: FLUCONAZOLE 100 MG TABLET 200 MG PO (19:07)
[2024-08-31 19:08] VITALS: BP 108/58; PULSE 81; RESP 18; O2SAT 99
--- NOTE | 2024-08-31 19:11 | PC.NURSE ---
Assumed care of patient after receiving bedside report from GARETH Hutchinson. Patient placed on monitor for a new set of vital signs at this time.
[2024-08-31 19:52] LABS: Trichomonas Vag PCR NOT DETECTED (NOT DETECTE)
[2024-08-31 20:19] LABS: Chlamydia trachomatis NOT DETECTED (NOT DETECTE); Neisseria gonorrhoeae PCR NOT DETECTED (NOT DETECTE)
== END 2024-08-31 20:00 | disposition home or self-care (01) ==
PROVIDERS: Emergency Provider Registered Nurse
DX: B37.31 Acute candidiasis of vulva and vagina (principal); Z87.891 Personal history of nicotine dependence
CPT/HCPCS: 81001; 81025; 87491; 87591; 87661; 99284; A9270

== ENCOUNTER 2024-12-07 18:40 | Emergency (ER) | payer OTHER, SELFPAY ==
--- NOTE | 2024-12-07 18:41 | ED.FEMALEGU ---
HPI - Female Genitourinary General Chief complaint: Urogenital-Female Stated complaint: UTI Time Seen by Provider: 12/07/24 18:41 Source: patient Mode of arrival: ambulatory Limitations: no limitations History of Present Illness HPI Narrative: Della is a 19-year-old female patient presenting to the clinic today with complaints of a possible UTI. She reports she is having burning, frequency, and urgency with urination as well as low back pain and some lower abdominal discomfort x1 week. States she is having some abnormal vaginal discharge and itching as well. Discharge has no odor. No concern for sexually transmitted infection. She reports she has been with the same partner for approximately 3 years. Her menses are irregular. Denies any fevers, chills, body aches. Related Data Allergies Allergy/AdvReac Type Severity Reaction Status Date / Time No Known Allergies Allergy Verified 12/07/24 18:42 Review of Systems Review of Systems: Pertinent positives per HPI. Patient denies any fever, chills, rash, headache, visual changes, dizziness, cough, runny nose, sore throat, shortness of breath, chest pain, palpitations, nausea, vomiting, diarrhea, constipation. [facility] Past Medical History Medical History Migraine Daily headache Suppression of menses ADHD Screening examination for sexually transmitted disease Amenorrhea Anxiety Family History Family History Grandparent Diabetes mellitus Neoplasm of skin Social History Social History Smoking status: Former smoker Tobacco type: e-cigarettes/vaping Smoking end date: 03/19/23 Alcohol intake: never Substance use: former Substance use type: former substance user Do You Feel Safe in your Home?: Yes Lack of Transportation: No Lack of Food: Never True Current Housing: I Have Housing Concerned About Future Housing: No Difficulty Paying Gas/Electric Bills: No Difficulty Paying for Meds: No Currently Unemployed: YES Education: High School Diploma/GED Difficulty w/ Childcare or Family Care: No Living arrangements: with family Occupation/Education: occupation Additional occupation/education comments: [employer] Gender identity (if verbalized by the patient): Female Sexual Orientation (if Verbalized by the Patient): Straight or Heterosexual Spiritual care concerns: No Comments At the time of my signature, I reviewed and agree with the nursing past medical, surgical, social, and family history. There is no relevant family history pertinent to the patient complaint. Exam Narrative: General: Well-developed, obese, in no apparent distress. Head: Normocephalic, atraumatic. Cardio: Regular rate and rhythm, s1 and s2 normal, no murmur appreciated. Resp: Clear to auscultation bilaterally, no rhonchi, rales, wheezing or rubs. Abdomen: Soft, pliable, bowel sounds present in all quadrants, suprapubic tender to palpation, no organomegly, bilateral CVAT tenderness. : Deferred-patient self swab Course Course Emergency Course: Portions of this record may have been created with voice recognition software. Level of Care: Express Care Visit Vital Signs Vital signs: Vital Signs Temperature 36.0 C L 12/07/24 18:48 Pulse Rate 113 H 12/07/24 18:48 Respiratory Rate 20 12/07/24 18:48 Blood Pressure 126/72 12/07/24 18:48 Pulse Oximetry 100 12/07/24 18:48 Oxygen Delivery Room Air 12/07/24 18:48 Temperature 36.0 C L 12/07/24 18:48 Pulse Rate 113 H 12/07/24 18:48 Respiratory Rate 20 12/07/24 18:48 Blood Pressure 126/72 12/07/24 18:48 Pulse Oximetry 100 12/07/24 18:48 Oxygen Delivery Room Air 12/07/24 18:48 Vital signs reviewed MDM - Female Genitourinary MDM Narrative Medical decision making narrative: At the time of visit patient is resting comfortably on the exam table. Patient appears to be nontoxic. Complaints of a possible UTI. She reports she is having burning, frequency, and urgency with urination as well as low back pain and some lower abdominal discomfort x1 week. States she is having some abnormal vaginal discharge and itching as well. Discharge has no odor. No concern for sexually transmitted infection. She reports she has been with the same partner for approximately 3 years. Her menses are irregular. Denies any fevers, chills, body aches. Urine dip Labs: Urine dip shows trace of leukocytes and blood. Bedside test was negative. Urine culture was sent to the lab. Patient self swab for BV and genital culture. These were sent to the lab Plan: Patient has UTI symptoms with vaginal discharge and itching. Prescription for Diflucan and Macrobid was sent to the pharmacy. Will wait BV testing results prior to treatment. Supportive measures were discussed with the patient and they voiced understanding discharge instructions and agrees to treatment plan. Return precautions reviewed Differential Diagnosis Differential diagnosis: Likely urinary tract infection, bacterial vaginosis, trichomoniasis, cervicitis, vaginitis, cystitis and other (Vaginal yeast infection) Lab Data Labs: Lab Results 12/07/24 12/07/24 Range/Units 18:56 18:59 POC Urine Color Yellow POC Urine Clarity Clear POC Urine pH 5.5 POC Ur Specif [place] 1.030 POC Urine Protein Negative (Negative) POC Ur Glucose (UA) Negative (Negative) POC Urine Ketones Negative (Negative) POC Urine Blood Trace (Negative) POC Urine Nitrite Negative (Negative) POC Urine Bilirubin Negative (Negative) POC Urine Urobilinogen 0.2 POC U Leukocyte Esteras Trace (Negative) POC Urine HCG, Qual Negative (Negative) Discharge Plan Discharge Clinical Impression: Symptoms of urinary tract infection, Vaginal discharge Patient Disposition: Home Condition: Stable Instructions: Antibiotic Form, Urinary Tract Infection in Women (ED), Vaginal Discharge (ED) Additional Instructions: Urine shows a trace of leukocytes and trace of blood. We will send urine for culture Bacterial vaginosis and genital culture swabs were obtained and sent to the lab. Take Macrobid as prescribed Increase fluids and stay well hydrated Wipe front to back. May use wet wipes. Avoid tub baths If sexually active- pee before and after intercourse. Wear cotton panties Avoid tight clothing up against the genitals Follow up with your PCP in 1 week if symptoms persist. Patient Language: Pashto Prescriptions: New nitrofurantoin monohyd/m-cryst [Macrobid] 100 mg capsule 100 mg PO Q12H 5 Days Qty: 10 0RF Rx Instructions: must administer with a meal/food fluconazole 150 mg tablet 150 mg PO ONCE Qty: 2 0RF Rx Instructions: as a single dose. May repeat in 72 hours if needed. Follow-up/Referrals: UNKNOWN,DOCTOR [Non-Staff] Time of Disposition: 19:08 Quality [facility] Nursing Documentation ED [facility] nursing documentation: reviewed/agree
--- OUTSIDE RECORDS SUMMARY | 2024-12-07 18:42 | XMS_ITS | Clinical Summary ---
Author Organization [email or web address] Address [address] [place] [address] Care Team Providers Care Metal Machine Setter Name Role Phone Stephane Lira MD Primary Care Provider + Jayjay Nguyen MD Unavailable Source Comments [email or web address],non-owned Affiliates and Associated Physician Practices is amultiple site organization consisting of ambulatory clinics and hospital sitesin [place], [place], [place] and [place]. This disclosure is being madepursuant to the Care Everywhere program and may not contain all information available regarding this patient. Last updated 17.[email or web address] Allergies No known active allergies Medications * [...] on file Legal Sex Female 6:27 PM RN [facility] Gender Identity Not on file Sexual Orientation Not on file Last Filed Vital Signs Vital Sign Reading Time Taken Comments Blood Pressure - - Pulse - - Temperature - - Respiratory Rate - - Oxygen Saturation - - Inhaled Oxygen Concentration - - Weight 67.3 kg (148 lb 5.9 oz) 03/14/2019 3:31 P M RN [facility] Height 166 cm (5' 5.35) 03/14/2019 3:31 PM RN [facility] Body Mass Index 24.42 03/14/2019 3:31 PM RN [facility] Plan of Treatment Health Maintenance Due Date Last Done Comments HIV SCREENING 11/03/2018 HPV VACCINE (1 - 3-dose series) 11/03/2018 CHLAMYDIA/GONORRHEA SCREENING 2019 MENINGOCOCCAL (Group B) VACC INE SHARED DECISION-MAKING (1 of 2 - Standard) 2019 HEPATITIS C SCREENING 10/30/2021 DTAP/TDAP/TD VACCINES (1 - Tdap) 11/03/2022 HEPATITIS B VACCINE (1 of 3 - 19+ 3-dose series) 11/03/2022 DEPRESSION SCREENING 03/19/2024 PAP SMEAR 11/03/2024 COVID-19 VACCINE (1 - 2023-2 5 season) 2024 INFLUENZA VACCINE (#1) 2024 ZOSTER VACCINE (1 of 2) 11/03/2053 HIB VACCINE Aged Out No longer eligi ble based on patient's age to complete this topic MENINGOCOCCAL GROUPS A/C/Y/W VACCINE Aged Out No longer eligible b ased on patient's age to complete this topic PNEUMOCOCCAL VACCINE Aged Out No long er eligible based on patient's age to complete this topic [place] [address] [facility] SELF PAY NO INSURANCE Member Subscriber Plan / Payer (Ef fective for All Dates) Name:Della Mcfarlane Member ID:Not on file Relation to Subscriber:Not on file Name:DELLA MCFARLANE Subscriber ID:Not on file Address: [address] [place] [phone] Payer ID:Not on file Group ID:Not on file Type:Self Pay Address: [place], [place] [facility] SELF PAY NO INSURANCE Member Subscriber Plan / Payer (Ef fective for All Dates) Name:Della Mcfarlane R Member ID:Not on file Relation to Subscriber:Not on file Name:DELLA MCFARLANE Subscriber ID:Not on file Address: [address] [place] [address] Payer ID:Not on file Group ID:Not on file Type:Self Pay Address: [place], [place] [facility] SELF PAY NO INSURANCE Member Subscriber Plan / Payer (Ef fective for All Dates) Name:Della Mcfarlane R Member ID:Not on file Relation to Subscriber:Not on file Name:REHANAPHOENIXBOBBYHÉCTORBRODY Subscriber ID:Not on file Address: [address] [place] [phone] Payer ID:Not on file Group ID:Not on file Type:Self Pay Address: [place], [place] Care Teams Metal Machine Setter Relationship Specialty Start Date End Date Stephane Lira MD PCP - General Internal Medicine 03/05/19 Jayjay Nguyen MD Orthopedic Surgery 03/14/19
--- OUTSIDE RECORDS SUMMARY | 2024-12-07 18:43 | XMS_ITS | Clinical Summary ---
Author Organization [facility] Address [address] [place] [id number] Care Team Providers Care Ragman Name Role Phone None, Provider MD Primary Care Provider Unavaila ble Allergies No known active allergies Medications No known medications Social History Tobacco Use Types Packs/Day Years Used Date Smoking Tobacco: Never Passive Smoke Exposure: Never Smokeless Tobacco: Never Tobacco Cessation:Counseling Given: Not Answered Comments Unknown Sex and Gender Information Value Date Recorded Sex Assigned at Female 08/15/2024 3:21 PM CDT Legal Sex Female 7:21 PM CDT Gender Identity Not on file Sexual Orientation Not on file Last Filed Vital Signs Vital Sign Reading Time Taken Comments Blood Pressure 122/75 08/15/2024 7:51 PM CDT Pulse 87 08/15/2024 7:51 PM CDT Temperature 36.6 C (97.9 F) 08/15/2024 7:51 PM CDT Respiratory Rate 16 08/15/2024 7:51 PM CDT Oxygen Saturation 100% 08/15/2024 7:51 PM CDT Inhaled Oxygen Concentration - - Weight 81.6 kg (180 lb) 08/15/2024 3:35 PM CDT Height 167.6 cm (5' 6) 08/15/2024 3:35 PM CDT Body Mass Index 29.05 08/15/2024 3:35 PM CDT Plan of Treatment Health Maintenance Due Date Last Done Comments Cervical Cancer Screening Pap Smear (Age 21 to 29) Every 3 Years 2003 Cervical Cancer Screening 2003 Annual Physical 11/03/2006 Hepatitis C 11/03/2021 Meningococcal B Vaccine (2 of 2 - Bexsero SCDM 2-dose series) 05/24/2022 11/24/2021 COVID-19 Vaccine ( season) 2024 DTaP, Tdap and Td Vaccines (7 - Td or Tdap) 09/02/2025 09/03/2015, 11/02/2008, 03/01/2005, Additional history exists Hepatitis B Vaccines Completed 08/02/2004, 2003, 2003 Pneumococcal Vaccine: Pediatrics (0 to 5 Years) and At-Risk Patients (6 to 49 Years) Aged Out 02/24/2005, 05/02/2004, 03/01/2004, Additional history exists No longer eligible based on patient's age to complete this topic HPV Vaccines Completed 08/09/2015, 10/2015, 01/22/2015 Meningococcal Vaccine Completed 11/24/2021, 016 RSV Immunizations Under 20 Months Aged Out No longer eligible based on patient's age to complete this topic Insurance [employer] Care Teams Ragman Relationship Specialty Start Date End Date None, Provider, MD PCP - General UNKNOWN PHYSICIAN SPECIALTY 08/15/24
[2024-12-07 18:48] VITALS: BP 126/72; PULSE 113; RESP 20; TEMP 36; O2SAT 100
[2024-12-07 18:58] LABS: EDUAAPPEAR Clear; EDUABILI Negative (Negative); EDUABLOOD Trace (Negative); EDUACOLOR1 Yellow; EDUAGLUCOSE Negative (Negative); EDUAKETONE Negative (Negative); EDUALEUKO Trace (Negative); EDUANITRATE Negative (Negative); EDUAPH 5.5; EDUAPROTEIN Negative (Negative); EDUASPGRAVITY 1.030; EDUAUROBILI 0.2
[2024-12-07 19:01] LABS: BEDSIDEPREGUCG Negative (Negative)
== END 2024-12-07 19:14 | disposition home or self-care (01) ==
PROVIDERS: Emergency Provider Nurse Practitioner Family
DX: R30.0 Dysuria (principal); R35.0 Frequency of micturition; R39.15 Urgency of urination; N89.8 Other specified noninflammatory disorders of vagina; Z87.891 Personal history of nicotine dependence
CPT/HCPCS: 81003; 81025; 81513; 87070; 87086; 87798; 99213; G0463

== ENCOUNTER 2025-01-17 14:22 | Emergency (ER) | payer OTHER, SELFPAY ==
--- OUTSIDE RECORDS SUMMARY | 2025-01-17 14:24 | XMS_ITS | Clinical Summary ---
Author Organization [facility] Address [address] [place] [address] Care Team Providers Care Multigraph Operator Name Role Phone Stephane Lira MD Primary Care Provider + Jayjay Nguyen MD Unavailable Source Comments [facility],non-owned Affiliates and Associated Physician Practices is amultiple site organization consisting of ambulatory clinics and hospital sitesin [place], [place], [place] and [place]. This disclosure is being madepursuant to the Care Everywhere program and may not contain all information available regarding this patient. Last updated 17.[facility] Allergies No known active allergies Medications * [...] on file Legal Sex Female 6:27 PM PRICING SPECIALIST Gender Identity Not on file Sexual Orientation Not on file Last Filed Vital Signs Vital Sign Reading Time Taken Comments Blood Pressure - - Pulse - - Temperature - - Respiratory Rate - - Oxygen Saturation - - Inhaled Oxygen Concentration - - Weight 67.3 kg (148 lb 5.9 oz) 03/14/2019 3:31 P M PRICING SPECIALIST Height 166 cm (5' 5.35) 03/14/2019 3:31 PM PRICING SPECIALIST Body Mass Index 24.42 03/14/2019 3:31 PM PRICING SPECIALIST Plan of Treatment Health Maintenance Due Date [...] patient's age to complete this topic [place] [address] [place] [address] [facility] SELF PAY NO INSURANCE Member Subscriber Plan / Payer (Ef fective for All Dates) Name:Della Mcfarlane Member ID:Not on file Relation to Subscriber:Not on file Name:DELLA MCFARLANE Subscriber ID:Not on file Address: [address] [place] [phone] Payer ID:Not on file Group ID:Not on file Type:Self Pay Address: [place], [place] [facility] SELF PAY NO INSURANCE Member Subscriber Plan / Payer (Ef fective for All Dates) Name:Della Mcfarlane R Member ID:Not on file Relation to Subscriber:Not on file Name:DELLA MCFARLANE Subscriber ID:Not on file Address: [address] [place] [address] Payer ID:Not on file Group ID:Not on file Type:Self Pay Address: [place], [place] [facility] SELF PAY NO INSURANCE Member Subscriber Plan / Payer (Ef fective for All Dates) Name:Della Mcfarlane R Member ID:Not on file Relation to Subscriber:Not on file Name:REHANAPHOENIXBOBBYHÉCTORBRODY Subscriber ID:Not on file Address: [address] [place] [phone] Payer ID:Not on file Group ID:Not on file Type:Self Pay Address: [place], [place] Care Teams Multigraph Operator Relationship Specialty Start Date End Date Stephane Lira MD PCP - General Internal Medicine 03/05/19 Jayjay Nguyen MD Orthopedic Surgery 03/14/19
--- OUTSIDE RECORDS SUMMARY | 2025-01-17 14:24 | XMS_ITS | Clinical Summary ---
Author Organization [facility] Address [address] [place] [address] Care Team Providers Care Oncology Rep Name Role Phone None, Provider MD Primary [...] 05/24/2022 11/24/2021 COVID-19 Vaccine ( season) 2024 Influenza Adult (#1) 2024 05/31/2023, 01/22/2015, 01/01/2009, Additional history exists DTaP, Tdap and Td Vaccines (7 - [...] 10/2015, 01/22/2015 Meningococcal Vaccine Completed 11/24/2021, 016 Hepatitis A Vaccines Aged Out No long er eligible based on patient's age to complete this topic RSV Immunizations Under 20 Months Aged Out No longer eligible based on patient's age to complete this topic Insurance [employer] Care Teams Oncology Rep Relationship Specialty Start Date End Date None, Provider, MD PCP - General UNKNOWN PHYSICIAN SPECIALTY 08/15/24
--- NOTE | 2025-01-17 14:33 | ED_ITS ---
HPI - General Adult General Chief complaint: Upper Respiratory Infection Stated complaint: Sore throat Time Seen by Provider: 01/17/25 14:33 Source: patient Mode of arrival: ambulatory Limitations: no limitations History of Present Illness HPI narrative: 19-year-old female presents to the [facility] with complaints of sore throat for the past 2 days. Patient states she has been taking some [id number] Tylenol ibuprofen for. Denies fevers body aches or chills. Denies any recent vaccinations. Patient states she has had a little bit of congestion runny nose. Denies chest pain shortness of breath abdominal pain nausea vomiting or diarrhea Related Data Home Medications ?Medication ?Instructions ?Recorded ?Confirmed ?Last Taken ?Type norethindrone (contraceptive) 0.35 mg 01/17/25 Unknow n History mg tablet Allergies Allergy/AdvReac Type Severity Reaction Status Date / Time No Known Allergies Allergy Verified 01/17/25 14:28 Review of Systems Review of Systems: CONSTITUTIONAL: Denies fever, chills, or sweats. EYES: Denies visual changes, redness, or discharge. ENT: positive rhinorrhea, congestion, positive sore throat, denies otalgia. CARDIOVASCULAR: Denies chest pain, palpitations, or edema. RESPIRATORY: Denies cough or dyspnea. GASTROINTESTINAL: Denies abdominal pain, nausea, vomiting, or diarrhea. GENITOURINARY: Denies dysuria or hematuria. SKIN: Denies rash or itching. MUSCULOSKELETAL: Denies back pain, joint pain, or myalgia. NEUROLOGIC: Denies headache, numbness, or weakness. PSYCHIATRIC: Denies anxiety or depression. [facility] Past Medical History Medical History Migraine Daily headache Suppression of menses ADHD Screening examination for sexually transmitted disease Amenorrhea Anxiety Family History Family History Grandparent Diabetes mellitus Neoplasm of skin Social History Social History Smoking status: Former smoker Tobacco type: e-cigarettes/vaping Smoking end date: 03/19/23 Alcohol intake: never Substance use: former Substance use type: former substance user Do You Feel Safe in your Home?: Yes Lack of Transportation: No Lack of Food: Never True Current Housing: I Have Housing Concerned About Future Housing: No Difficulty Paying Gas/Electric Bills: No Difficulty Paying for Meds: No Currently Unemployed: YES Education: High School Diploma/GED Difficulty w/ Childcare or Family Care: No Living arrangements: with family Occupation/Education: occupation Additional occupation/education comments: [employer] Gender identity (if verbalized by the patient): Female Sexual Orientation (if Verbalized by the Patient): Straight or Heterosexual Spiritual care concerns: No Comments At the time of my signature I agree with nursing past medical history, surgical, social, and family history. There is no relevant family history pertinent to the presenting complaint. Exam Narrative: GENERAL: Well-appearing, well-nourished, and in no acute distress. HEAD: Normocephalic, atraumatic. EYES: PERRLA and EOMI. ENT: Nares with erythema edema noted bilaterally, no rhinorrhea or epistaxis. Mucous membranes moist. posterior pharynx with no erythema, tonsillar enlargement, exudates or lesions present. There is some postnasal drip noted. Bilateral TMs are clear no erythema or foreign bodies the canal. NECK: Supple. No lymphadenopathy CHEST: Clear to auscultation. No respiratory distress. HEART: Regular rate and rhythm. No murmur heard. Normal peripheral pulses. ABDOMEN: Soft, nontender, nondistended, normal active bowel sounds. EXTREMITIES: Normal range of motion. No edema. SKIN: Warm, dry, no rash. NEURO: No focal deficits. Alert and oriented x3. Course Course Level of Care: Express Care Visit Vital Signs Vital signs: Vital Signs Temperature 36.7 C 01/17/25 14:49 Pulse Rate 100 01/17/25 14:49 Respiratory Rate 18 01/17/25 14:49 Blood Pressure 134/67 01/17/25 14:49 Pulse Oximetry 100 01/17/25 14:49 Oxygen Delivery Room Air 01/17/25 14:49 Temperature 36.7 C 01/17/25 14:49 Pulse Rate 100 01/17/25 14:49 Respiratory Rate 18 01/17/25 14:49 Blood Pressure 134/67 01/17/25 14:49 Pulse Oximetry 100 01/17/25 14:49 Oxygen Delivery Room Air 01/17/25 14:49 vital signs reviewed. Medical Decision Making MDM Narrative Medical decision making narrative: Discussed with patient her point of care testing for strep is negative today we will send it off to lab for culture and if the culture comes back positive we will call her in an antibiotic at that time. Discussed with patient to continue using [id number] medications to help with symptoms and can also do hot tea and honey and warm saltwater gargles. Patient verbalized under standing denies any other questions or concerns at this time. Differential Diagnosis Differential Diagnosis: Differential diagnosis: Viral pharyngitis, pharyngitis, group A strep, infectious mononucleosis, gonococcal pharyngitis, exudative pharyngitis, oral candidiasis. Chronic allergies, postnasal drip, GERD, abscess formation, but glottitis, retropharyngeal abscess formation, or airway obstruction. Vital Signs Vital Signs: Vital Signs Temperature 36.7 C 01/17/25 14:49 Pulse Rate 100 01/17/25 14:49 Respiratory Rate 18 01/17/25 14:49 Blood Pressure 134/67 01/17/25 14:49 Pulse Oximetry 100 01/17/25 14:49 Oxygen Delivery Room Air 01/17/25 14:49 Temperature 36.7 C 01/17/25 14:49 Pulse Rate 100 01/17/25 14:49 Respiratory Rate 18 01/17/25 14:49 Blood Pressure 134/67 01/17/25 14:49 Pulse Oximetry 100 01/17/25 14:49 Oxygen Delivery Room Air 01/17/25 14:49 Lab Data Labs: Lab Results 01/17/25 Range/Units 14:55 POC Grp A Strep Screen Negative (Negative) Critical Care Time Critical Care Time Critical Care Time: No Discharge Plan Discharge Clinical Impression: Acute viral pharyngitis Patient Disposition: Home Condition: Stable Instructions: Antibiotic Form, Pharyngitis (ED) Additional Instructions: A sore throat can be caused by an infection from a virus or bacteria. Sore throat can also be caused by postnasal drip, allergies, and exposure to smoke. A viral sore throat last 3-4 days and cannot be treated with antibiotics. One type of sore throat virus, infectious mononucleosis (mono), can last for 3 weeks and older children. The germs that cause these infections are contagious and can be spread by coughing or sharing drinks or utensils. Contact her primary care physician or go to the ER if: Your trouble breathing or swallowing because her throat is swollen or sore. You're drooling because it hurts too much to swallow. You're painful lump in your throat go away after 5 days. You're fever is higher than 10 2??F or last longer than 3 days. You have confusion. You are blood in your throat. You're sore throat should feel better within 3-5 days without treatment if it is caused by virus. You may need the following: Ibuprofen or Tylenol as needed for pain or fever Gargle warm salt water Drink more liquids, cold or warm drinks may help soothe her throat. Humidifier in your room. Cough drops, ice, soft foods, or popsicles may help soothe her throat. A spoonful of honey could help with inflammation and soothe her throat. Wash her hands with soap and water, do not share food or drinks, throat away her toothbrush after 72 hours. Patient Language: Eritrean Prescriptions: No Action norethindrone (contraceptive) 0.35 mg tablet Follow-up/Referrals: PHYSICIAN,ELECTRIC MOTOR TESTER ASSEMBLER [Primary Care Provider, Internal Medicine] Time of Disposition: 15:27
[2025-01-17 14:49] VITALS: BP 134/67; PULSE 100; RESP 18; TEMP 36.7; O2SAT 100
[2025-01-17 14:57] LABS: EDSTREPNEGPOS1 Negative (Negative)
== END 2025-01-17 15:31 | disposition home or self-care (01) ==
PROVIDERS: Emergency Provider Nurse Practitioner Family
DX: J02.8 Acute pharyngitis due to other specified organisms (principal); Z87.891 Personal history of nicotine dependence
CPT/HCPCS: 87081; 87880; 99213; G0463